=== PATIENT | male | born 1955 | race Caucasian/White ===

== ENCOUNTER 2023-05-16 22:09 | Emergency (ER) | payer BC, SELFPAY ==
[2023-05-16 22:14] VITALS: BP 106/69; PULSE 62; RESP 20; TEMP 36.3; O2SAT 95; BMI 28.7
--- NOTE | 2023-05-16 22:30 | CT_ITS ---
The [address] [address] Patient Name: JUAN MALAVE MRN: [id number] date: 1955 Sex: M Assigned Patient Location: ER Current Patient Location: ER Accession/Order Number: [id number] Exam Date: 05/16/2023 22:40 Report Date: 05/16/2023 23:02 At the request of: ESCOBAR MARKER Procedure: CT head/brain wo con CT head/brain wo con, 05/16/2023 10:40 PM EDT INDICATION: CHI COMPARISON: None. TECHNIQUE: Axial CT images of the brain from skull base to vertex, including portions of the face and sinuses, were obtained without contrast. Multiplanar reformatted images were generated and reviewed as needed. Dose reduction techniques were achieved by using automated exposure control and/or adjustment of mA and/or kV according to patient size and/or use of iterative reconstruction technique. FINDINGS: CEREBRUM: No edema, hemorrhage, mass, acute infarction, or inappropriate atrophy. There is a slitlike focus of CSF density adjacent to the anterior horn of the right lateral ventricle. A 3 mm rounded focus of CSF density is seen adjacent to the anterior horn of the left lateral ventricle. CEREBELLUM: No edema, hemorrhage, mass, acute infarction, or inappropriate atrophy. BRAINSTEM: No acute infarct, hemorrhage or gross structural abnormality. CSF SPACES: Ventricles, cisterns, and sulci are appropriate for age. No hydrocephalus, subarachnoid hemorrhage, or mass. SKULL: No mass or other significant visible lesion. SINUSES: Limited views demonstrate no significant mucosal thickening or fluid. ORBITS: Limited views are unremarkable. OTHER: None. IMPRESSION: Small foci of CSF density adjacent to the frontal horn of each lateral ventricle consistent with remote lacunar infarcts. No acute intracranial abnormality is otherwise identified. Electronically authenticated by: Quan FOSTER Date: 05/16/2023 23:02
--- NOTE | 2023-05-16 22:30 | CT_ITS ---
[address] [address] Patient Name: JUAN MALAVE MRN: [id number] date: 1955 Sex: M Assigned Patient Location: ER Current Patient Location: Accession/Order Number: [id number] Exam Date: 05/16/2023 22:40 Report Date: 05/16/2023 23:05 At the request of: ESCOBAR MARKER Procedure: CT cervical spine wo con EXAMINATION: CT cervical spine wo con HISTORY: fall COMPARISON: None. TECHNIQUE: CT Cervical spine without IV contrast. Coronal and sagittal reformations were performed. Dose reduction techniques were achieved by using automated exposure control and/or adjustment of mA and/or kV according to patient size and/or use of iterative reconstruction technique. FINDINGS: CV JUNCTION: Normal foramen magnum with no Chiari malformation. PARASPINAL: Normal with no visible mass. BONES: No fracture, pars defect, or osseous lesion. OTHER: None. DISC LEVELS: C1-C2: Within normal limits for age. C2-C3: No significant disc/facet abnormality, spinal stenosis, or foraminal stenosis. C3-C4: No significant disc/facet abnormality, spinal stenosis, or foraminal stenosis. C4-C5: Early degenerative disc disease is present without focal protrusion or central canal impingement. There is mild right foraminal stenosis. The left foramen is satisfactorily maintained.. C5-C6: Early degenerative disc disease is present without focal protrusion or neural impingement. C6-C7: Early degenerative disc disease is present without focal protrusion or neural impingement. C7-T1: No significant disc/facet abnormality, spinal stenosis, or foraminal stenosis. IMPRESSION: Mild multilevel cervical spondylosis. No evidence for acute fracture or traumatic malalignment. Electronically authenticated by: Quan FOSTER Date: 05/16/2023 23:05
[2023-05-16] MEDS: ONDANSETRON PF 4 MG/2 ML VIAL (22:46)
--- NOTE | 2023-05-16 23:17 | XR_ITS ---
The [address] [address] Patient Name: JUAN MALAVE MRN: [id number] date: 1955 Sex: M Assigned Patient Location: ER Current Patient Location: Accession/Order Number: [id number] Exam Date: 05/16/2023 23:30 Report Date: 05/16/2023 23:44 At the request of: ESCOBAR MARKER Procedure: XR elbow RT min 3V EXAM: XR elbow RT min 3V HISTORY: fall COMPARISON: None. TECHNIQUE: 3 views of the right elbow FINDINGS: No acute fracture is seen. Joint alignment is normal. Joint spaces are preserved.. No significant joint effusion is seen. Soft tissue swelling seen about the posterior elbow. IMPRESSION: No acute fracture or malalignment. Soft tissue swelling is seen about the posterior elbow. Electronically authenticated by: CARO ZARCO Date: 05/16/2023 23:44
--- NOTE | 2023-05-16 23:18 | XR_ITS ---
The [address] [address] Patient Name: JUAN MALAVE MRN: [id number] date: 1955 Sex: M Assigned Patient Location: ER Current Patient Location: ER Accession/Order Number: [id number] Exam Date: 05/16/2023 23:30 Report Date: 05/16/2023 23:42 At the request of: ESCOBAR MARKER Procedure: XR knee RT 2V EXAM: XR knee RT 2V HISTORY: fall COMPARISON: None. TECHNIQUE: 2 views of the right knee were obtained. FINDINGS: No acute fracture or dislocation is seen. The joint spaces are preserved. There is no significant right knee joint effusion. There is prepatellar soft tissue edema. IMPRESSION: 1. Right knee prepatellar soft tissue edema with no acute fracture or dislocation is seen. If there is concern for internal derangement, a nonemergent outpatient MRI is recommended. Electronically authenticated by: Mohsen HENRY Date: 05/16/2023 23:42
--- NOTE | 2023-05-16 23:49 | ED_ITS ---
HPI - Fall General Chief Complaint: Head Injury Stated Complaint: HEAD INJURY Time Seen by Provider: 05/16/23 22:30 Source: patient and family Source comment: EMS Mode of arrival: ambulance History of Present Illness HPI Narrative: This 67-year-old male is brought emergency department by EMS from home. The patient is accompanied by his . They have both been drinking since around 5 PM. The patient was walking down the stairs into his basement where there is a nail sticking out of a board and he struck the right side of his frontal aspect of his scalp on the nail sustaining approximately 8 cm superficial laceration to the right anterior temporal aspect of the scalp area. He fell and landed on his right elbow and right knee. He has tenderness and bruising to the right elbow. He has full range of motion. He denies that is particularly tender. He also has an abrasion over the elbow area. He has a superficial abrasion over the right knee. He denies any loss of consciousness. He denies any neck pain. He denies any chest pain or shortness of breath. EMS was called due to the fact that the patient is had both been drinking since 5 PM. He has no neck pain, back pain, abdominal pain. He does not know the date of his last tetanus shot. He declines a need for any pain medication. MD complaint: Reports fall Onset (ago): hour(s) (1) Fall from: Reports standing Fall witnessed: Reports yes, by family Place fall occurred: Reports home Loss of consciousness: none Prolonged down time: Reports no Symptoms prior to fall: Reports none Context: Reports alcohol use Location of injury: Reports head and other (Right elbow, right knee) Severity: mild Associated symptoms (after fall): Reports denies Related Data Home Medications Medication Instructions Recorded Confirmed aspirin 81 mg chewable tablet 81 mg PO DAILY 05/16/23 05/16/23 atorvastatin 40 mg tablet mg 05/16/23 losartan 50 mg tablet 50 mg PO DAILY 05/16/23 05/16/23 pantoprazole 40 mg tablet,delayed 40 mg PO PRN gi 05/16/23 release Allergies Allergy/AdvReac Type Severity Reaction Status Date / Time No Known Drug Allergies Allergy Verified 05/16/23 22:21 Review of Systems ROS Status of ROS 10 or more systems reviewed and unremarkable except as noted in history and below PFSH PFSH Social History Smoking status: Never smoker Exam Constitutional Vital Signs - 24 hr 05/16/23 22:14 Temperature 97.4 F L Pulse Rate [Monitor] 62 Respiratory Rate 20 Blood Pressure [Right Arm] 106/69 Pulse Oximetry 95 Oxygen Delivery Method Room Air Documenting provider has reviewed patient's vital signs: yes Common normals: no apparent distress, average body habitus, oriented x3, no limitations, healthy appearing, alert and well nourished Exam limitations: altered mental status (Mildly intoxicated with normal neuro exam, GCS 15) General appearance: cooperative and comfortable Orientation/consciousness: Yes awake, Yes oriented to person, Yes oriented to place and Yes oriented to time [facility] Common normals: normocephalic, head/scalp atraumatic (Superficial laceration approximately 8 cm rt temporal-rt frontal), TMs normal bilaterally, external nos e normal, oropharynx normal, dentition normal and gingiva normal Head and scalp: scalp tenderness Face and sinus: normal facial exam and face symmetric Nose: external nose normal, nares normal, nasal mucous membranes and turbinates normal and no nasal discharge Mouth: oral and palatal mucosa normal Eye Common normals: PERRL, EOMs intact bilaterally and conjunctivae normal Neck & C-Spine Common normals: full ROM, no lymphadenopathy and supple General: normal visual inspection, trachea midline and tenderness (No midline bony vertebral tenderness or step-off) Chest Common normals: inspection of chest normal and palpation of chest normal Respiratory Common normals: normal respiratory effort, no retractions, no use of accessory muscles and clear to auscultation bilaterally Effort & inspection: able to speak in complete sentences and symmetric chest movement Auscultation: clear to auscultation bilaterally Cardio Common normals: no JVD, regular rate, regular rhythm, S1 normal heart sound, S2 normal heart sound, no gallops, no clicks, no murmurs, no rub and peripheral pulses 2+ throughout GI Common normals: Normal to inspection, nondistended, normoactive bowel sounds present, soft to palpation and non-tender Back & Pelvis Common normals: no CVA tenderness, thoracic and lumbar spine normal to inspection, no thoracic nor lumbar tenderness and thoraco-lumbar ROM normal Extremity Common normals: normal capillary refill General: normal exam except as noted Right upper extremity: elbow joint (Tenderness and bruising to the right lateral elbow, full range of motion) Right elbow: inspection (Tenderness and bruising to lateral elbow with superficial abrasion), ROM (Normal range of motion) and neurovascular exam (Normal neurovascular exam) Right lower extremity: knee joint (Superficial abrasion over the right knee, full range of motion) Right knee: inspection (Superficial abrasion, no bony abnormality) Neuro Lincoln Coma Scale: document GCS findings Lincoln coma scale eye opening: Spontaneous Lincoln coma scale verbal response: Orientated Lincoln coma scale motor response: Obey commands Lincoln coma scale total score: 15 Common normals: oriented x3, CN's II-XII intact bilaterally, moves all extremities, no focal motor deficits and no sensory deficits noted Speech: speech normal Psych Common normals: mental status grossly normal (Mildly intoxicated with no focal deficits) Course Vital Signs Vital signs: Vital Signs Temperature 97.4 F L 05/16/23 22:14 Pulse Rate 62 05/16/23 22:14 Respiratory Rate 20 05/16/23 22:14 Blood Pressure 106/69 05/16/23 22:14 Pulse Oximetry 95 05/16/23 22:14 Oxygen Delivery Method Room Air 05/16/23 22:14 Temperature 97.4 F L 05/16/23 22:14 Pulse Rate 62 05/16/23 22:14 Respiratory Rate 20 05/16/23 22:14 Blood Pressure 106/69 05/16/23 22:14 Pulse Oximetry 95 05/16/23 22:14 Oxygen Delivery Method Room Air 05/16/23 22:14 MDM - Fall MDM Narrative Medical decision making narrative: C7-year-old male who takes a daily baby aspirin is brought to the emergency department by EMS from home after he was drinking with his this evening and fell down the stairs into his basement and struck his head on a nail sticking out of a piece of wood sustaining approximately 8 cm superficial abrasion/laceration to the right forehead area. His GCS is 15. He did not know the date of his last tetanus shot. Tetanus was updated. He declined the need for any medications. He also has ecchymosis and abrasion to the right elbow and some ecchymosis to the right knee. CT scan of the brain was negative for acute findings. CT scan of the C-spine is negative for acute findings. X-ray of the right elbow was negative for acute findings an x-ray of the right knee was also negative. The patient has remained hemodynamically and neurologically stable in the emergency department and will be discharged home. The patient's son is here to drive the patient and his home. Discharge Plan Discharge Chief Complaint: Head Injury Clinical Impression: Contusion of elbow, Contusion of knee, Fall from standing, Closed head injury, Abrasion head Patient Disposition: Home, Self-Care Condition: Good Prescriptions / Home Meds: No Action losartan 50 mg tablet 50 mg PO DAILY atorvastatin 40 mg tablet pantoprazole 40 mg tablet,delayed release (DR/EC) 40 mg PO PRN (Reason: gi) aspirin 81 mg tablet,chewable 81 mg PO DAILY Instructions: Head Injury (ED), Contusion in Adults (ED), Scalp Contusion in Adults (ED) Stand Alone Forms: Portal Instructions Referrals: Jese Rodriguez DO [Primary Care Provider] - 1 week
[2023-05-16] MEDS: ADACEL DIPH,PERTUSS(ACELL),TET VAC/PF 0.5 ML ADULT SYRINGE IM (23:53)
[2023-05-17] MEDS: BACITRACIN 0.9 GM PACKET 1 PACKET TOPICAL (00:57)
== END 2023-05-17 01:00 | disposition home or self-care (01) ==
PROVIDERS: Emergency Provider Emergency Medicine; PCP Internal Medicine
DX: S09.8XXA Other specified injuries of head, initial encounter (principal); S50.01XA Contusion of right elbow, initial encounter; S00.81XA Abrasion of other part of head, initial encounter; S80.01XA Contusion of right knee, initial encounter; W22.8XXA Striking against or struck by other objects, initial encounter; Z79.82 Long term (current) use of aspirin; Z79.899 Other long term (current) drug therapy; Z23 Encounter for immunization
CPT/HCPCS: 70450; 72125; 73080; 73560; 90471; 90715; 99285

== ENCOUNTER 2023-05-24 11:20 | Emergency (ER) | payer BC, SELFPAY ==
[2023-05-24 11:32] VITALS: BP 121/98; PULSE 78; RESP 16; TEMP 36.6; O2SAT 98; BMI 28.7
[2023-05-24 11:35] VITALS: BP 121/98
--- NOTE | 2023-05-24 11:48 | XR_ITS ---
The [address] [address] Patient Name: JUAN MALAVE MRN: [id number] date: 1955 Sex: M Assigned Patient Location: ER Current Patient Location: ER Accession/Order Number: [id number] Exam Date: 05/24/2023 12:00 Report Date: 05/24/2023 12:26 At the request of: IRA MORENO Procedure: XR ribs RT min 3V w CXR1V EXAMINATION: XR ribs RT min 3V w CXR1V 05/24/2023 9:23 AM PDT HISTORY: atraumatic pain COMPARISONS: None. FINDINGS: Lines and tubes: None. Heart and mediastinum: Tortuosity of the thoracic aorta. Rounded opacification over the lower mediastinum which could represent small/medium sized hiatal hernia. Lungs and pleura: The lungs are clear. There is no evidence of pneumonia or pulmonary edema. There is no pleural effusion or pneumothorax. Bones: No acute osseous abnormality. RIGHT RIBS: No displaced rib fracture. IMPRESSION: 1. No acute cardiopulmonary disease. 2. No displaced right-sided rib fracture or etiology for right lower chest wall pain demonstrated. Electronically authenticated by: MADIE ORTIZ Date: 05/24/2023 12:26
--- NOTE | 2023-05-24 11:50 | ED.GENADUL1 ---
HPI - General Adult General Chief complaint: Fall Stated complaint: FLANK PAIN Time Seen by Provider: 05/24/23 11:34 Source: patient Mode of arrival: walk-in Limitations: no limitations History of Present Illness HPI narrative: 67-year-old male presents to the emergency department Related Data Home Medications Medication Instructions Recorded Confirmed aspirin 81 mg chewable tablet 81 mg PO DAILY 05/16/23 05/16/23 atorvastatin 40 mg tablet mg 05/16/23 losartan 50 mg tablet 50 mg PO DAILY 05/16/23 05/16/23 pantoprazole 40 mg tablet,delayed 40 mg PO PRN gi 05/16/23 release Previous Rx's Medication Instructions Recorded acetaminophen 300 mg-codeine 30 mg 1 tab PO Q6H PRN pain #20 tabs 05/24/23 tablet cyclobenzaprine 10 mg tablet 10 mg PO TID PRN muscle spasm #20 05/24/23 tabs Allergies Allergy/AdvReac Type Severity Reaction Status Date / Time No Known Drug Allergies Allergy Verified 05/24/23 11:32 PFSH PFSH Social History Smoking status: Never smoker Exam Constitutional Vital Signs - 24 hr 05/24/23 11:32 Temperature 97.8 F Pulse Rate [Monitor] 78 Respiratory Rate 16 Blood Pressure [Left Arm] 121/98 H Pulse Oximetry 98 Oxygen Delivery Method Room Air Course Vital Signs Vital signs: Vital Signs Temperature 97.8 F 05/24/23 11:32 Pulse Rate 78 05/24/23 11:32 Respiratory Rate 16 05/24/23 11:32 Blood Pressure 121/98 H 05/24/23 11:32 Pulse Oximetry 98 05/24/23 11:32 Oxygen Delivery Method Room Air 05/24/23 11:32 Temperature 97.8 F 05/24/23 11:32 Pulse Rate 78 05/24/23 11:32 Respiratory Rate 16 05/24/23 11:32 Blood Pressure 121/98 H 05/24/23 11:32 Pulse Oximetry 98 05/24/23 11:32 Oxygen Delivery Method Room Air 05/24/23 11:32 Medical Decision Making [facility] Narrative Medical decision making narrative: his workup including CT of the chest is negative. He has no abdominal pain at all and I suspect that the gallstone noted on the CAT scan is an incidental finding. Reexamination of his abdomen shows no tenderness in the right upper quadrant. There is no evidence of pneumothorax or pneumonia or rib fracture or PE. He'll be treated symptomatically. Treatment diagnosis and follow-up were discussed with the patient. Differential Diagnosis Differential Diagnosis: pneumothorax, pulmonary embolism, rib fracture, pneumonia, chest wall pain Lab Data Lab results reviewed: Yes I reviewed the patient's lab results Labs: Lab Results 05/24/23 05/24/23 Range/Units 12:56 13:27 WBC 8.4 (4.0-11.0) 10^3/uL RBC 4.09 L (4.70-6.10) 10^6/uL Hgb 13.3 L (14.0-18.0) g/dL Hct 39.4 L (42.0-54.0) % MCV 96.3 H (80.0-94.0) fL MCH 32.5 (25.9-34.0) pg MCHC 33.8 (29.9-35.2) g/dL RDW 12.9 (11.0-15.0) % Plt Count 191 (150-450) 10^3/uL MPV 10.1 (9.5-13.5) fL Neut % (Auto) 78.1 H (43.0-75.0) % Lymph % (Auto) 13.0 L (20.5-60.0) % [place] % (Auto) 7.0 (1.7-12.0) % Eos % (Auto) 1.2 (0.9-7.0) % Baso % (Auto) 0.5 (0.2-2.0) % Neut # (Auto) 6.6 H (1.4-6.5) 10^3/uL Lymph # (Auto) 1.1 L (1.2-3.8) 10^3/uL [place] # (Auto) 0.6 (0.3-0.8) 10^3/uL Eos # (Auto) 0.1 (0.0-0.7) 10^3/uL Baso # (Auto) 0.0 (0.0-0.1) 10^3/uL Abs Immat Gran (auto) 0.02 (0.00-0.03) 10^3/uL Imm/Tot Granulo (auto) 0.2 (0.0-0.5) % Sodium 136 (136-145) mmol/L Potassium 4.2 (3.5-5.1) mmol/L Chloride 105 (98-107) mmol/L Carbon Dioxide 24.5 (21.0-32.0) mmol/L Anion Gap 10.7 BUN 28.0 H (7.0-18.0) mg/dL Creatinine 1.26 (0.70-1.30) mg/dL Est GFR ( Amer) >60 (>=60) Est GFR (Non-Af Amer) 57 L (>=60) BUN/Creatinine Ratio 22.2 Glucose 103 (74-106) mg/dL Calcium 8.7 (8.5-10.1) mg/dL Urine Color Yellow (YELLOW) Urine Clarity Clear (CLEAR) Urine pH 5.5 (5.0-9.0) Ur Specific [place] >=1.030 A (1.005-1.025) Urine Protein Negative (NEG/TRACE) mg/dL Urine Glucose (UA) Negative (NEGATIVE) mg/dL Urine Ketones Trace A (NEGATIVE) mg/dL Urine Occult Blood Negative (NEGATIVE) Urine Nitrite Negative (NEGATIVE) Urine Bilirubin Negative (NEGATIVE) Urine Urobilinogen 2.0 A (0.2-1.0) EU/dL Ur Leukocyte Esterase Negative (NEGATIVE) Discharge Plan Discharge Chief Complaint: Fall Clinical Impression: Acute chest wall pain Patient Disposition: Home, Self-Care Time of Disposition Decision: 14:58 Condition: Good Mode of Transportation: Private Vehicle Prescriptions / Home Meds: New acetaminophen-codeine 300-30 mg tablet 1 tab PO Q6H PRN (Reason: pain) Qty: 20 0RF cyclobenzaprine 10 mg tablet 10 mg PO TID PRN (Reason: muscle spasm) Qty: 20 0RF No Action losartan 50 mg tablet 50 mg PO DAILY atorvastatin 40 mg tablet pantoprazole 40 mg tablet,delayed release (DR/EC) 40 mg PO PRN (Reason: gi) aspirin 81 mg tablet,chewable 81 mg PO DAILY Instructions: Chest Wall Pain (ED) Stand Alone Forms: Portal Instructions Referrals: Jese Rodriguez DO [Primary Care Provider] - 1 week
[2023-05-24 13:07] LABS: Bilirubin Urine NEGATIVE (NEGATIVE); Blood Urine NEGATIVE (NEGATIVE); Clarity Urine CLEAR (CLEAR); Color Urine YELLOW (YELLOW); Glucose Urine UA NEGATIVE (NEGATIVE); Ketones Urine TRACE mg/dL (NEGATIVE); Leukocyte Esterase Urine NEGATIVE (NEGATIVE); Nitrite Urine NEGATIVE (NEGATIVE); Protein Urine NEGATIVE (NEG/TRACE); Specific Gravity Urine >=1.030 (1.005-1.025); pH Urine 5.5 (5.0-9.0)
[2023-05-24 13:14] LABS: Urine Microscopic Indicated NO
--- NOTE | 2023-05-24 13:19 | CT_ITS ---
[address] [address] Patient Name: JUAN MALAVE MRN: [id number] date: 1955 Sex: M Assigned Patient Location: ER Current Patient Location: Accession/Order Number: [id number] Exam Date: 05/24/2023 13:55 Report Date: 05/24/2023 14:26 At the request of: IRA MORENO Procedure: CT angio chest EXAMINATION: CT angio chest HISTORY: pain COMPARISON: No relevant comparison available. TECHNIQUE: Multi-planar CT images were created with IV contrast. Axial, Coronal, and Sagittal images. Dose reduction techniques were achieved by using automated exposure control and/or adjustment of mA and/or kV according to patient size and/or use of iterative reconstruction technique. FINDINGS: LUNGS: Mild bibasilar patchy and linear opacities, atelectasis is favored. A few scattered punctate pulmonary nodules are observed, nonspecific PLEURA: No mass, effusion, or pneumothorax. VASCULATURE: Normal postcontrast opacification of the central pulmonary arterial tree with no filling defect DIAMANTE: No mass or adenopathy. MEDIASTINUM: No mass or adenopathy. CARDIAC: No enlargement, pericardial thickening, or significant calcification. AORTA: No aneurysm or dissection. CHEST WALL: No mass or axillary adenopathy. BONES: No bone lesion or fracture. LIMITED ABDOMEN: 1.1 cm gallstone partially visualized without CT evidence of acute cholecystitis OTHER: Negative. IMPRESSION: No central pulmonary thromboembolic disease Electronically authenticated by: LISA GAMING Date: 05/24/2023 14:26
[2023-05-24 13:36] LABS: Basophils Percent Auto 0.5 % (0.2-2.0); Eosinophils Absolute Auto 0.1 10^3/uL (0.0-0.7); Eosinophils Percent Auto 1.2 % (0.9-7.0); Hematocrit 39.4 % (42.0-54.0); Hemoglobin 13.3 g/dL (14.0-18.0); Immature Granulocytes Abs Auto 0.02 10^3/uL (0.00-0.03); Immature Granulocytes Pct Auto 0.2 % (0.0-0.5); Lymphocytes Absolute Auto 1.1 10^3/uL (1.2-3.8); Mean Corpuscular HGB Conc 33.8 g/dL (29.9-35.2); Mean Corpuscular Hemoglobin 32.5 pg (25.9-34.0); Mean Corpuscular Volume 96.3 fL (80.0-94.0); Mean Platelet Volume 10.1 fL (9.5-13.5); Monocytes Absolute Auto 0.6 10^3/uL (0.3-0.8); Neutrophils Absolute Auto 6.6 10^3/uL (1.4-6.5); Neutrophils Percent Auto 78.1 % (43.0-75.0); Platelet Count 191 10^3/uL (150-450); Red Blood Count 4.09 10^6/uL (4.70-6.10); Red Cell Distribution Width 12.9 % (11.0-15.0); White Blood Count 8.4 10^3/uL (4.0-11.0)
[2023-05-24 13:44] LABS: Anion Gap 10.7; BUN Creatinine Ratio 22.2; Calcium 8.7 mg/dL (8.5-10.1); Carbon Dioxide 24.5 mmol/L (21.0-32.0); Chloride 105 mmol/L (98-107); Estimated GFR (African America >60 (>=60); Estimated GFR (Non-African Ame 57 (>=60); Glucose 103 mg/dL (74-106); Potassium 4.2 mmol/L (3.5-5.1); Sodium 136 mmol/L (136-145)
[2023-05-24] MEDS: MORPHINE SULFATE 4 MG/ML VIAL IV (14:11)
== END 2023-05-24 15:13 | disposition home or self-care (01) ==
PROVIDERS: Emergency Provider Emergency Medicine; PCP Internal Medicine
DX: R07.89 Other chest pain (principal); Z79.82 Long term (current) use of aspirin; Z79.899 Other long term (current) drug therapy
CPT/HCPCS: 36415; 71101; 71275; 80048; 81003; 85025; 96374; 99285; Q9967

== ENCOUNTER 2023-10-16 10:18 | Outpatient (OUT) | payer BC, SELFPAY ==
[2023-10-16 10:37] LABS: Basophils Percent Auto 0.4 % (0.2-2.0); Eosinophils Absolute Auto 0.1 10^3/uL (0.0-0.7); Eosinophils Percent Auto 1.3 % (0.9-7.0); Hematocrit 39.4 % (42.0-54.0); Hemoglobin 13.3 g/dL (14.0-18.0); Immature Granulocytes Abs Auto 0.02 10^3/uL (0.00-0.03); Immature Granulocytes Pct Auto 0.2 % (0.0-0.5); Lymphocytes Absolute Auto 1.3 10^3/uL (1.2-3.8); Lymphocytes Percent Auto 15.4 % (20.5-60.0); Mean Corpuscular HGB Conc 33.8 g/dL (29.9-35.2); Mean Corpuscular Hemoglobin 32.7 pg (25.9-34.0); Mean Corpuscular Volume 96.8 fL (80.0-94.0); Mean Platelet Volume 10.1 fL (9.5-13.5); Monocytes Absolute Auto 0.5 10^3/uL (0.3-0.8); Monocytes Percent Auto 5.4 % (1.7-12.0); Neutrophils Absolute Auto 6.5 10^3/uL (1.4-6.5); Neutrophils Percent Auto 77.3 % (43.0-75.0); Platelet Count 181 10^3/uL (150-450); Red Blood Count 4.07 10^6/uL (4.70-6.10); Red Cell Distribution Width 13.1 % (11.0-15.0); White Blood Count 8.4 10^3/uL (4.0-11.0)
[2023-10-16 11:24] LABS: Alanine Aminotransferase 28 U/L (16-63); Albumin Globulin Ratio 1.1; Albumin Level 3.4 g/dL (3.4-5.0); Alkaline Phosphatase 81 U/L (46-116); Anion Gap 15.4; Aspartate Amino Transferase 29 U/L (15-37); BUN Creatinine Ratio 18.9; Bilirubin Total 0.8 mg/dL (0.2-1.0); Calcium 8.6 mg/dL (8.5-10.1); Carbon Dioxide 24.5 mmol/L (21.0-32.0); Chloride 106 mmol/L (98-107); Chol HDL Ratio 2.2; Cholesterol 121 mg/dL (<=200); Estimated GFR (African America >60 (>=60); Estimated GFR (Non-African Ame >60 (>=60); Globulin 3.1 g/dL; Glucose 95 mg/dL (74-106); HDL Cholesterol 54 mg/dL (40-60); LDL Cholesterol Calculated 52.6 mg/dL; Potassium 3.9 mmol/L (3.5-5.1); Sodium 142 mmol/L (136-145); Total Protein 6.5 g/dL (6.4-8.2); Triglycerides 72 mg/dL (<=150); VLDL CHOLESTEROL 14.4 mg/dL
[2023-10-16 11:37] LABS: Prostate Specific Antigen Scrn 2.37 ng/mL (<=4.00)
== END 2023-10-16 10:19 | disposition home or self-care (01) ==
LOC: LAB 10:19
PROVIDERS: PCP Internal Medicine; Visit Provider Internal Medicine
DX: Z00.00 Encounter for general adult medical examination without abnormal findings (principal)
CPT/HCPCS: 36415; 80053; 80061; 85025; G0103

== ENCOUNTER 2024-01-16 10:10 | Outpatient (OUT) | payer BC, SELFPAY ==
--- OUTSIDE RECORDS SUMMARY | 2024-01-16 10:14 | XMS_ITS | CCD ---
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 Name Role Phone CARMEN, DR FARMER Consulting Unavailable CARMEN, DR FARMER Primary Care Unavailable CARMEN, DR FARMER Admitting Unavailable CARMEN, DR FARMER Attending Unavailable BALL, DR FARMER Primary Care Unavailable BALL, DR FARMER Admitting Unavailable BALL, DR FARMER Attending Unavailable BALL, DR FARMER Consulting Unavailable BALL, DR FARMER Primary Care Unavailable TJ ., DR ROMAN Admitting Unavailable HOY ., DR ROMAN Attending Unavailable HOY ., DR ROMAN Consulting Unavailable Carmen, Jese Unavailable Medications Current Medications Medication Drug Class(es) Dates Sig (Normalized) Sig (Original) aspirin 81 mg oral tablet (3 sources) Platelet Aggregation Inhibitor, Nonsteroidal Anti-inflammatory Drug take 1 tablet by mouth once daily Aspirin 81 81 MG 1 tablet Orally Once a day Active take 1 tablet by carey th every twenty-four hours Aspirin 81 81 MG 1 tablet Orally Once a day Active atorvastatin 40 mg oral tablet (3 sources) HMG-CoA Reductase Inhibitor Atorvastatin Calcium 40 mg TAKE 1 TABLET DAILY IN THE EVENING Active losartan potassium 50 mg oral tablet (3 sources) Angiotensin 2 Receptor Tania Losartan Potassium 50 mg TAKE 1 TABLET DAILY Active pantoprazole 40 mg delayed release oral tablet (4 sources) Proton Pump Inhibitor Start: 2 take 1 tablet by mouth every twenty-four hours Pantoprazole Sodium 40 MG 1 tablet Orally Once a day for 30 day(s) Nov, Active Problems Active Problems Problem Classification Problem Date Documented Date Episodic/Chronic Deficiency and other anemia (4 sources) Anemia, unspecified; Translations: [ANEMIA UNSPECIFIED] Onset: 01-17-2023 Episodic Deficiency and other anemia (2 sources) Iron deficiency anemia; Translations: [Iron deficiency anemia, unspecified] Episodic Deficiency and other anemia (3 sources) Anemia; Translations: [Anemia, unspecified] Episodic Disorders of lipid metabolism (6 sources) Pure hypercholesterolemia; Translations: [Familial hypercholesterolemia] Chronic E Codes: Fall (1 source) Unspecified fall, subsequent encounter Episodic Esophageal disorders (4 sources) Gastroesophageal reflux disease; Translations: [Gastro-esophageal reflux disease without esophagitis] Chronic Essential hypertension (6 sources) Essential hypertension; Translations: [Essential (primary) hypertension] Chronic Gastritis and duodenitis (7 sources) Chronic superficial gastritis; Translations: [Chronic superficial gastritis with bleeding] Chronic Hyperplasia of prostate (3 sources) Lower urinary tract symptoms due to benign prostatic hypertrophy; Translations: [Benign prostatic hyperplasia with lower urinary tract symptoms] Chronic Intracranial injury (1 source) Concussion without loss of consciousness, subsequent encounter Episodic Other and ill-defined cerebrovascular disease (3 sources) Cerebral atherosclerosis; Translations: [Cerebral atherosclerosis] Chronic Other and ill-defined cerebrovascular disease (1 source) Cerebral atherosclerosis Chronic Other nutritional; endocrine; and metabolic disorders (1 source) Overweight Episodic Other screening for suspected conditions (not mental disorders or infectious disease) (2 sources) Encounter for screening for malignant neoplasm of prostate; Translations: [ENC SCREEN MALIG NEOPLASM PROSTATE] Onset: 10-22-2022 Episodic Superficial injury; contusion (2 sources) Contusion of right elbow, subsequent encounter; Translations: [Contusion of right knee, subsequent encounter] Episodic Past or Other Problems Problem Classification Problem Date Documented Da te Episodic/Chronic Immunizations and screening for infectious disease (4 sources) Encounter for immunization; Translations: [ENCOUNTER FOR IMMUNIZATION] Onset: 02-08-2022 Episodic Results Test Name Value Interpretation Reference Range Facil ity CBC AUTO DIFFon 01-17-2023 BASO # 0.0 103/ul Normal 0.0-0.1 [facility] Comment on above: Performed By: #### C BC #### [facility] [address] [address] [address] Mike Curran Basophils/100 WBC (Bld) 0.4 % Normal 0.2-2.0 [facility] Comment on above: Performed By: #### C BC #### [facility] [address] [address] [address] Mike Curran EO # 0.1 103/ul Normal 0.0-0.7 [facility] Comment on above: Performed By: #### C BC #### [facility] [address] [place] [address] Dr. Mike Curran Eosinophils/100 WBC (Bld) 1.7 % Normal 0.9-7.0 [facility] Comment on above: Performed By: #### C BC #### [facility] [address] [place] [address] Dr. Mike uCrran Erythrocyte distribution width (RBC) [Ratio] 12.7 % Normal 11.0-15.0 [facility] Comment on above: Performed By: #### C BC #### [facility] [address] [place] [address] Dr. Mike Curran Hematocrit (Bld) [Volume fraction] 42.1 % Normal 42.0-54.0 [facility] Comment on above: Performed By: #### C BC #### [facility] [address] [place] [address] Dr. Mike Curran Hemoglobin (Bld) [Mass/Vol] 14.4 g/dL Normal 14.0-18.0 [facility] Comment on above: Performed By: #### C BC #### [facility] [address] [place] [address] Dr. Mike Curran IG # 0.01 10e3/ul Normal 0.00-0.03 [facility] Comment on above: Performed By: #### C BC #### [facility] [address] [place] [address] Dr. Mike Curran IG % 0.1 % Normal 0.0-0.5 [facility] Comment on above: Performed By: #### C BC #### [facility] [address] [place] [address] Dr. Mike Curran LYMPH # 1.3 103/ul Normal 1.2-3.8 [facility] Comment on above: Performed By: #### C BC #### [facility] [address] [place] [address] Dr. Mike Curran Lymphocytes/100 WBC (Bld) 18.6 % Critically low 20.5-60.0 [facility] Comment on above: Performed By: #### C BC #### [facility] [address] [place] [address] Dr. Mike Curran MANUAL DIFF REQ NO Normal [facility] Comment on above: Performed By: #### C BC #### [facility] [address] [place] [address] Dr. Mike Curran MCH (RBC) [Entitic mass] 32.4 pg Normal 25.9-34.0 [facility] Comment on above: Performed By: #### C BC #### [facility] [address] [place] [address] Dr. Mike Curran MCHC (RBC) [Mass/Vol] 34.2 g/dL Normal 29.9-35.2 [facility] Comment on above: Performed By: #### C BC #### [facility] [address] [place] [address] Dr. Mike Curran MCV (RBC) [Entitic vol] 94.8 fL Critically high 80.0-94.0 [facility] Comment on above: Performed By: #### C BC #### [facility] [address] [place] [address] Dr. Mike Curran MONO # 0.4 103/ul Normal 0.3-0.8 [facility] Comment on above: Performed By: #### C BC #### [facility] [address] [place] [address] Dr. Mike Curran Monocytes/100 WBC (Bld) 6.2 % Normal 1.7-12.0 [facility] Comment on above: Performed By: #### C BC #### [facility] [address] [place] [address] Dr. Mike Curran NEUT # 5.1 103/ul Normal 1.4-6.5 [facility] Comment on above: Performed By: #### C BC #### [facility] [address] [place] [address] Dr. Mike Curran Neutrophils/100 WBC (Bld) 73.0 % Normal 43.0-75.0 [facility] Comment on above: Performed By: #### C BC #### [facility] [address] [place] [address] Dr. Mike Curran Platelet mean volume (Bld) [Entitic vol] 10.1 fL Normal 9.5-13.5 [facility] Comment on above: Performed By: #### C BC #### [facility] [address] [place] [address] Dr. Mike Curran PLT 186 103/ul Normal 150-450 [facility] Comment on above: Performed By: #### C BC #### [facility] [address] [place] [address] Dr. Mike Curran RBC 4.44 106/ul Critically low 4.70-6.10 [facility] Comment on above: Performed By: #### C BC #### [facility] [address] [place] [address] Dr. Mike Curran WBC 7.0 103/ul Normal 4.0-11.0 [facility] Comment on above: Performed By: #### C BC #### [facility] [address] [place] [address] Dr. Mike Curran FERRITINon 01-17-2023 Ferritin [Mass/Vol] 113.0 ng/mL Normal 26.0-388.0 [facility] Comment on above: Performed By: #### B 12FOL, FETIBC, FERR #### [facility] [address] [place] [address] Dr. Mike Curran IRON AND TIBCon 01-17-2023 % SATURATION 32.7 % Normal [facility] Comment on above: Performed By: #### B 12FOL, FETIBC, FERR #### [facility] [address] [place] [address] Dr. Mike Curran Iron [Mass/Vol] 93.0 ug/dL Normal 65.0-175.0 [facility] Comment on above: Performed By: #### B 12FOL, FETIBC, FERR #### [facility] [address] [place] [address] Dr. Mkie Curran TIBC DIRECT 284.0 ug/dL Normal 250.0-450.0 [facility] Comment on above: Performed By: #### B 12FOL, FETIBC, FERR #### [facility] [address] [place] [address] Dr. Mike Curran VIT B12 AND FOLATEon 023 Cobalamin (Vitamin B12) [Mass/Vol] 461.0 pg/mL Normal 193.0-986.0 [facility] Comment on above: Performed By: #### B 12FOL, FETIBC, FERR #### [facility] [address] [place] [address] Dr. Mike Curran FOLATE 14.90 ng/mL Normal 8.60-58.90 [facility] Comment on above: Performed By: #### B 12FOL, FETIBC, FERR #### [facility] [address] [place] [address] Dr. Mike Curran CBC AUTO DIFFon 10-17-2022 BASO # 0.0 103/ul Normal 0.0-0.1 [facility] Comment on above: Performed By: #### C BC #### [facility] [address] [place] [address] Dr. Mike Curran Basophils/100 WBC (Bld) 0.5 % Normal 0.2-2.0 [facility] Comment on above: Performed By: #### C BC #### [facility] [address] [place] [address] Dr. Mike Curran EO # 0.1 103/ul Normal 0.0-0.7 [facility] Comment on above: Performed By: #### C BC #### [facility] [address] [place] [address] Dr. Mike Curran Eosinophils/100 WBC (Bld) 1.6 % Normal 0.9-7.0 [facility] Comment on above: Performed By: #### C BC #### [facility] [address] [place] [address] Dr. Mike Curran Erythrocyte distribution width (RBC) [Ratio] 13.1 % Normal 11.0-15.0 [facility] Comment on above: Performed By: #### C BC #### [facility] [address] [place] [address] Dr. Mike Curran Hematocrit (Bld) [Volume fraction] 39.0 % Critically low 42.0-54.0 [facility] Comment on above: Performed By: #### C BC #### [facility] [address] [place] [address] Dr. Mike Curran Hemoglobin (Bld) [Mass/Vol] 13.1 g/dL Critically low 14.0-18.0 [facility] Comment on above: Performed By: #### C BC #### [facility] [address] [place] [address] Dr. Mike Curran IG # 0.04 10e3/ul Critically high 0.00-0.03 [facility] Comment on above: Performed By: #### C BC #### [facility] [address] [place] [address] Dr. Mike Curran IG % 0.5 % Normal 0.0-0.5 [facility] Comment on above: Performed By: #### C BC #### [facility] [address] [place] [address] Dr. Mike Curran LYMPH # 1.4 103/ul Normal 1.2-3.8 [facility] Comment on above: Performed By: #### C BC #### [facility] [address] [place] [address] Dr. Mike Curran Lymphocytes/100 WBC (Bld) 15.3 % Critically low 20.5-60.0 [facility] Comment on above: Performed By: #### C BC #### [facility] [address] [place] [address] Dr. Mike Curran MANUAL DIFF REQ NO Normal [facility] Comment on above: Performed By: #### C BC #### [facility] [address] [place] [address] Dr. Mike Curran MCH (RBC) [Entitic mass] 31.7 pg Normal 25.9-34.0 [facility] Comment on above: Performed By: #### C BC #### [facility] [address] [place] [address] Dr. Mike Curran MCHC (RBC) [Mass/Vol] 33.6 g/dL Normal 29.9-35.2 [facility] Comment on above: Performed By: #### C BC #### [facility] [address] [place] [address] Dr. Mike Curran MCV (RBC) [Entitic vol] 94.4 fL Critically high 80.0-94.0 [facility] Comment on above: Performed By: #### C BC #### [facility] [address] [place] [address] Dr. Mike Curran MONO # 0.6 103/ul Normal 0.3-0.8 [facility] Comment on above: Performed By: #### C BC #### [facility] [address] [place] [address] Dr. Mike Curran Monocytes/100 WBC (Bld) 6.5 % Normal 1.7-12.0 [facility] Comment on above: Performed By: #### C BC #### [facility] [address] [place] [address] Dr. Mike Curran NEUT # 6.7 103/ul Critically high 1.4-6.5 [facility] Comment on above: Performed By: #### C BC #### [facility] [address] [place] [address] Dr. Mike Curran Neutrophils/100 WBC (Bld) 75.6 % Critically high 43.0-75.0 [facility] Comment on above: Performed By: #### C BC #### [facility] [address] [place] [address] Dr. Mike Curran Platelet mean volume (Bld) [Entitic vol] 9.6 fL Normal 9.5-13.5 [facility] Comment on above: Performed By: #### C BC #### [facility] [address] [place] [address] Dr. Mike Curran PLT 208 103/ul Normal 150-450 [facility] Comment on above: Performed By: #### C BC #### [facility] [address] [place] [address] Dr. Mike Curran RBC 4.13 106/ul Critically low 4.70-6.10 [facility] Comment on above: Performed By: #### C BC #### [facility] [address] [address] [address] Mike Curran WBC 8.9 103/ul Normal 4.0-11.0 [facility] Comment on above: Performed By: #### C BC #### [facility] [address] [address] [address] Mike Curran LIPID PROFILEon 10-17-2022 CHOL-HDL RATIO NORM SEE BELOW Normal [facility] Comment on above: Result Comment: 3.3 - 4.4 LOW RISK 4.4 - 7.1 AVERAGE RISK 7.1 - 11.0 MODERATE RISK >11.0 HIGH RISK Performed By: #### L IPID, CMP #### [facility] [address] [address] [address] Mike Curran Cholesterol [Mass/Vol] 111 mg/dL Normal <=200 [facility] Comment on above: Performed By: #### L IPID, CMP #### [facility] [address] [address] [address] Mike Curarn Cholesterol in HDL [Mass/Vol] 47 mg/dL Normal 40-60 [facility] Comment on above: Performed By: #### L IPID, CMP #### [facility] [address] [address] [address] Mike Curran Cholesterol in LDL [Mass/Vol] 43.2 mg/dL Normal [facility] Comment on above: Performed By: #### L IPID, CMP #### [facility] [address] [address] [address] Mike Curran Cholesterol.total/ Cholesterol in HDL [Mass ratio] 2.4 {ratio} Normal [facility] Comment on above: Performed By: #### L IPID, CMP #### [facility] [address] [place] [address] Dr. Mike Curran HDL NORMAL > or = 60 mg/dl - LO W CARDIOVASCULAR RISK <40 mg/dl - HIGH CARDIOVASCULAR RISK Normal [facility] Comment on above: Performed By: #### L IPID, CMP #### [facility] [address] [address] [address] Mike Curran LDL CALC NORMAL SEE BELOW Normal [facility] Comment on above: Result Comment: <100 mg/dl OPTIMAL 100 - 129 mg/dl NEAR OR ABOVE OPTIMAL 130 - 159 mg/dl BORDERLINE HIGH 160 - 189 mg/dl HIGH >190 mg/dl VERY HIGH Performed By: #### L IPID, CMP #### [facility] [address] [place] [address] Dr. Mike Curran Triglyceride [Mass/Vol] 104 mg/dL Normal <=150 [facility] Comment on above: Performed By: #### L IPID, CMP #### [facility] [address] [place] [address] Dr. Mike Curran VLDL CALC 20.8 mg/dL Normal [facility] Comment on above: Performed By: #### L IPID, CMP #### [facility] [address] [place] [address] Dr. Mike Curran PROF 14(COMP METB)on 022 Albumin [Mass/Vol] 3.5 g/dL Normal 3.4-5.0 [facility] Comment on above: Performed By: #### L IPID, CMP #### [facility] [address] [place] [address] Dr. Mike Curran Albumin/Globulin [Mass ratio] 1.1 {ratio} Normal [facility] Comment on above: Performed By: #### L IPID, CMP #### [facility] [address] [place] [address] Dr. Mike Curran ALP [Catalytic activity/Vol] 80 U/L Normal 46-116 [facility] Comment on above: Performed By: #### L IPID, CMP #### [facility] [address] [place] [address] Dr. Mike Curran ALT [Catalytic activity/Vol] 22 U/L Normal 16-63 [facility] Comment on above: Performed By: #### L IPID, CMP #### [facility] [address] [place] [address] Dr. Mike Curran Anion gap [Moles/Vol] 12.7 mmol/L Normal [facility] Comment on above: Performed By: #### L IPID, CMP #### [facility] [address] [place] [address] Dr. Mike Curran AST [Catalytic activity/Vol] 10 U/L Critically low 15-37 [facility] Comment on above: Performed By: #### L IPID, CMP #### [facility] [address] [place] [address] Dr. Mike Curran Bilirubin [Mass/Vol] 0.7 mg/dL Normal 0.2-1.0 [facility] Comment on above: Performed By: #### L IPID, CMP #### [facility] [address] [place] [address] Dr. Mike Curran Calcium [Mass/Vol] 8.8 mg/dL Normal 8.5-10.1 [facility] Comment on above: Performed By: #### L IPID, CMP #### [facility] [address] [place] [address] Dr. Mike Curran Chloride [Moles/Vol] 105 mmol/L Normal 98-107 [facility] Comment on above: Performed By: #### L IPID, CMP #### [facility] [address] [place] [address] Dr. Mike Curran CO2 [Moles/Vol] 25.1 mmol/L Normal 21.0-32.0 [facility] Comment on above: Performed By: #### L IPID, CMP #### [facility] [address] [place] [address] Dr. Mike Curran Creatinine [Mass/Vol] 1.11 mg/dL Normal 0.70-1.30 [facility] Comment on above: Performed By: #### L IPID, CMP #### [facility] [address] [place] [address] Dr. Mike Curran EGFR-AF YEMENI >60 Normal >=60 [facility] Comment on above: Performed By: #### L IPID, CMP #### [facility] [address] [place] [address] Dr. Mike Curran EGFR-NON AF YEMENI >60 Normal >=60 [facility] Comment on above: Performed By: #### L IPID, CMP #### [facility] [address] [place] [address] Dr. Mike Curran Globulin (S) [Mass/Vol] 3.3 g/dL Normal [facility] Comment on above: Performed By: #### L IPID, CMP #### [facility] [address] [place] [address] Dr. Mike Curran Glucose [Mass/Vol] 112 mg/dL Critically high 74-106 [facility] Comment on above: Performed By: #### L IPID, CMP #### [facility] [address] [place] [address] Dr. Mike Curran Potassium [Moles/Vol] 3.8 mmol/L Normal 3.5-5.1 [facility] Comment on above: Performed By: #### L IPID, CMP #### [facility] [address] [place] [address] Dr. Mike Curran Protein [Mass/Vol] 6.8 g/dL Normal 6.4-8.2 [facility] Comment on above: Performed By: #### L IPID, CMP #### [facility] [address] [place] [address] Dr. Mike Curran Sodium [Moles/Vol] 139 mmol/L Normal 136-145 [facility] Comment on above: Performed By: #### L IPID, CMP #### [facility] [address] [place] [address] Dr. Mike Curran Urea nitrogen [Mass/Vol] 28.0 mg/dL Critically high 7.0-18.0 [facility] Comment on above: Performed By: #### L IPID, CMP #### [facility] [address] [place] [address] Dr. Mike Curran Urea nitrogen/Creatinin e [Mass ratio] 25.2 mg/mg Normal [facility] Comment on above: Performed By: #### L IPID, CMP #### [facility] [address] [place] [address] Dr. Mike Curran [facility] SARS-CoV-2 (COVID-19) RNA MOIRA+probe Ql (Unsp spec) Negative Normal Negative [facility] Comment on above: Order Comment: Healt hcare Worker?: N Result Comment: Testing for SARS-CoV-2 by RT-PCR This test was developed and its performance characteristics determined by [employer] ([employer]) and validated at the [place] [facility]. This test has not been FDA cleared or approved. This test has been authorized by FDA under an Emergency Use Authorization (EUA). This test has been validated in accordance with the FDA's Guidance Document (Policy for Diagnostics Testing in Laboratories Certified to Perform High Complexity Testing under CLIA prior to Emergency Use Authorization for Coronavirus Disease-2019 during the Public Health Emergency) issued on February 25, 2020. This test is only authorized for the duration of time the declaration that circumstances exist justifying the authorization of the emergency use of in vitro diagnostic tests for detection of SARS-CoV-2 virus and/or diagnosis of COVID-19 infection under section 564(b)(1) of the Act, 21 U.S.C. 360bbb-3(b)(1), unless the authorization is terminated or revoked sooner. PERFORMED BY: [place] [address] PATHOLOGIST [employer] CRISTINO OLIVER M.D. Performed By: #### C OVID 19 [facility] #### [address] Vital Signs Date Time Vital Sign Value Performing Clinician Facility 10-11-2023 14:30-0500 Body height 177.8 cm [facility] Other [facility] Other 10-11-2023 14:30-0500 Body mass index (BMI) [Ratio] 29.61 kg/m2 [facility] Other 10-11-2023 14:30-0500 Body weight 93.62 kg [facility] Other [facility] Other 10-11-2023 14:30-0500 Diastolic blood pressure 94 mm[Hg] Jese Ball Other [facility] Other 10-11-2023 14:30-0500 Respiratory rate 12 /min Jese Ball Other [facility] Other 10-11-2023 14:30-0500 Systolic blood pressure 150 mm[Hg] Jese Ball Other [facility] Other 05-31-2023 14:30-0400 Body height 177.8 cm Jese Ball Other [facility] Other 05-31-2023 14:30-0400 Body mass index (BMI) [Ratio] 29.27 kg/m2 Jese Ball Other [facility] Other 05-31-2023 14:30-0400 Body weight 92.53 kg Jese Ball Other [facility] Other 05-31-2023 14:30-0400 Diastolic blood pressure 83 mm[Hg] Jese Ball Other [facility] Other 05-31-2023 14:30-0400 Respiratory rate 12 /min Jese Ball Other [facility] Other 05-31-2023 14:30-0400 Systolic blood pressure 119 mm[Hg] Jese Ball Other [facility] Other Encounters Encounter Date Encounter Type Care Provider Facility Start: 10-21-2023 End: 10-21-2023 ambulatory Jese Ball Other [facility] Other Start: 10-21-2023 Telephone encounter [facility] Start: 10-11-2023 End: 10-11-2023 ambulatory Jese Ball Other [facility] Other Start: 10-11-2023 Encounter for genera l adult medical examination without abnormal findings Jese Morales [facility] Start: 10-11-2023 Periodic preventive med est patient 65yrs& older Jese Morales [facility] Start: 05-31-2023 End: 05-31-2023 ambulatory Jese Morales Other [facility] Other Start: 05-31-2023 Office outpatient vi sit 15 minutes Jese Morales [facility] Start: 05-24-2023 End: 05-24-2023 ambulatory Jese Morales Other [facility] Other Start: 05-24-2023 Telephone encounter Jese Morales [facility] Start: 01-17-2023 End: 01-18-[address] JESE MORALES Facility:[facility] Start: 10-22-2022 Encounter for genera l adult medical examination without abnormal findings DR JESE MORALES [facility] Start: 10-17-2022 End: 10-18-[address] JESE MORALES Facility:[facility] Start: 10-17-2022 End: 10-18-2022 Encounter for general adult medical examination without abnormal findings DR JESE MORALES Facility:[facility] Start: 02-08-2022 End: 02-09-[address] JESE MORALES Facility:[facility] Procedures Date Procedure Procedure Detail Performing Clinician Start: 10-17-[address] KING [place] Comment on above: Performed By: #### P [facility] #### [facility] [address] [place] [address] Dr. Mike Curran Immunizations Immunization Date Immunization Notes Care Provider Fa cility 10-01-2022 Prevnar 20 Jese Morales Other [facility] Other Payers Date Payer Category Payer Self-pay 1957 Unknown [id number] 1957 Unknown [id number] 1955 Unknown [id number] [id number] 1955 Unknown [id number] [id number] Unknown [id number] [id number] Social History Date Type Detail Facility Sex Assigned At [facility] Other Evaluation note 10-11-2023 Note Date & Type Note Facility 10-11-2023 Evaluation note Encounter Date Diagnosis Assessment Notes Sep, Wellness examination (ICD-10 - Z00.00) Healthy diet and exercise. Reviewed age-appropriate preventive testing recommended. 17 Sep, 2023 Cerebral atherosclerosis (ICD-10 - I67.2) Continue secondary prevention. Reviewed stroke like symptoms and instructed to go to ER for evaluation if develops Sep, Primary hypertension (ICD-10 - I10) This patient is instructed to consume a healthy, low-fat, low-salt diet. They are also encouraged to continue exercise to achieve/maintain a normal BMI. Sep, Hypercholesteremia (ICD-10 - E78.00) Instructed on diet and exercise with continued statin therapy.Discussed the beneficial effects of lowering cholesterol in reducing the risk for cerebrovascular and cardiovascular disease. Sep, Overweight (ICD-10 - E66.3) This patient has been instructed on a low-fat, high-fiber diet. They are instructed to reduce calories, portion sizes and snacks. It is recommended that they exercise for 30 minutes, 3-5 times weekly. Sep, Screening PSA (prostate specific antigen) (ICD-10 - Z12.5) Yearly MARGARITA and PSA [facility] Other Evaluation note 05-31-2023 Note Date & Type Note Facility 05-31-2023 Evaluation note Encounter Date Diagnosis Assessment Notes May, Contusion of right elbow, subsequent encounter (ICD-10 - S50.01XD) Cleanse abrasion, monitor for s/s infection XR negative for fx May, Concussion without loss of consciousness, subsequent encounter (ICD-10 - S06.0X0D) No residual symptoms - increase activity as tolerated May, Contusion of right knee, subsequent encounter (ICD-10 - S80.01XD) Cleanse abrasion w/ soap and water, monitor for s/s infection. XR negative for fx May, Accident due to mechanical fall without injury, subsequent encounter (ICD-10 - W19.XXXD) Minor, non life threatening injuries Continue w/ activities as tolerated. Tylenol as needed for pain [facility] Other Evaluation note Note Date & Type Note Facility Evaluation note No Information [facility] Other History general Narrative - Reported Note Date & Type Note Facility History general Narrative - Reported Type Medical History GERD [facility] Other History general Narrative - Reported Note Date & Type Note Facility History general Narrative - Reported Type Medical History GERD Medical History Antral gastritis Medical History Anemia Medical History Benign prostatic hyp erplasia with lower urinary tract symptoms Medical History Cerebral atherosclerosis Medical History Hyperlipidemia type II Medical History Essential hypertension Surgical History EGD 11/16/2021 Surgical History Colonoscopy 11/06/2021 Hospitalization History see surgical history [facility] Other Summary Purpose Family History No Family History Records FoundNo Family History Records Found Advance Directives No Advanced Directives Records FoundNo Advanced Directives Records Found Additional Source Comments (unrecognized sect ion and content) No Status Records FoundNo Status Records Found INFORMATION SOURCE (unrecogn ized section and content) DATE CREATED AUTHOR 11/10/2021 [facility] DATE CREATED AUTHOR AUTHOR'S ORGANIZ ATION 01/22/2023 [facility] REASON FOR VISIT (unrecogniz ed section and content) Wants in [facility] results FOR RECORDS PERTAINING TO PATIENTS WHO ARE OR HAVE BEEN ENROLLED IN A CHEMICAL DEPENDENCY/SUBSTANCEABUSE PROGRAM, SOME INFORMATION MAY BE OMITTED. This clinical summary was aggregated from multiple sources. Caution should be exercised in using it in the provision of clinical care. This summary normalizes information from multiple sources, and as a consequence, information in this document may materially change the coding, format and clinical context of patient data. In addition, data may be omitted in some cases. CLINICAL DECISIONS SHOULD BE BASED ON THE PRIMARY CLINICAL RECORDS. [facility] provides no warranty or guarantee of the accuracy or completeness of information in this document.
[2024-01-16 10:37] LABS: Basophils Percent Auto 0.4 % (0.2-2.0); Eosinophils Absolute Auto 0.2 10^3/uL (0.0-0.7); Hematocrit 40.9 % (42.0-54.0); Hemoglobin 13.2 g/dL (14.0-18.0); Immature Granulocytes Abs Auto 0.02 10^3/uL (0.00-0.03); Immature Granulocytes Pct Auto 0.3 % (0.0-0.5); Lymphocytes Absolute Auto 1.4 10^3/uL (1.2-3.8); Lymphocytes Percent Auto 18.6 % (20.5-60.0); Mean Corpuscular HGB Conc 32.3 g/dL (29.9-35.2); Mean Corpuscular Hemoglobin 31.7 pg (25.9-34.0); Mean Corpuscular Volume 98.3 fL (80.0-94.0); Mean Platelet Volume 10.4 fL (9.5-13.5); Monocytes Absolute Auto 0.5 10^3/uL (0.3-0.8); Monocytes Percent Auto 6.8 % (1.7-12.0); Neutrophils Absolute Auto 5.5 10^3/uL (1.4-6.5); Neutrophils Percent Auto 71.9 % (43.0-75.0); Platelet Count 168 10^3/uL (150-450); Red Blood Count 4.16 10^6/uL (4.70-6.10); Red Cell Distribution Width 12.9 % (11.0-15.0); White Blood Count 7.6 10^3/uL (4.0-11.0)
[2024-01-16 13:40] LABS: Percent Iron Saturation 32.5 %
== END 2024-01-16 10:11 | disposition home or self-care (01) ==
LOC: LAB 10:11
PROVIDERS: PCP Internal Medicine; Visit Provider Internal Medicine
DX: D50.9 Iron deficiency anemia, unspecified (principal)
CPT/HCPCS: 36415; 82607; 82728; 82746; 83540; 83550; 85025

== ENCOUNTER 2024-10-19 10:09 | Outpatient (OUT) | payer BC, SELFPAY ==
--- OUTSIDE RECORDS SUMMARY | 2024-10-19 10:32 | XMS_ITS | CCD ---
Author Organization [facility] Care Team Providers Care Outside Machinist Helper Name Role Phone CARMEN, DR FARMER Consulting Unavailable CARMEN, DR FARMER Primary Care Unavailable BALL, DR FARMER Admitting Unavailable CARMEN, DR FARMER Attending Unavailable BALL, DR FARMER Primary Care Unavailable BALL, DR FARMER Admitting Unavailable CARMEN, DR FARMER Attending Unavailable CARMEN, DR FARMER Consulting Unavailable CARMEN, DR FARMER Primary Care Unavailable TJ ., DR ROMAN Admitting Unavailable TJ ., DR ROMAN Attending Unavailable HOY ., [...] 01-17-2023 BASO # 0.0 103/ul Normal 0.0-0.1 [facility] Comment on above: Performed By: #### C BC #### [facility] [address] [place] [address] Dr. Mike Curran Basophils/100 WBC (Bld) 0.4 % Normal 0.2-2.0 [facility] Comment on above: Performed By: #### C BC #### [facility] [address] [place] [address] Dr. Mike Curran EO # 0.1 103/ul Normal 0.0-0.7 [facility] Comment on above: Performed By: #### C BC #### [facility] [address] [place] [address] Dr. Mike Curran Eosinophils/100 WBC (Bld) 1.7 % Normal 0.9-7.0 [facility] Comment on above: Performed By: #### C BC #### [facility] [address] [place] [address] Dr. Mike Curran Erythrocyte distribution width (RBC) [Ratio] 12.7 % Normal 11.0-15.0 [facility] Comment on above: Performed By: #### C BC #### [facility] [address] [place] [address] Dr. Mike Curran Hematocrit (Bld) [Volume fraction] 42.1 % Normal 42.0-54.0 [facility] Comment on above: Performed By: #### C BC #### [facility] [address] [place] [address] Dr. Mike Curran Hemoglobin (Bld) [Mass/Vol] 14.4 g/dL Normal 14.0-18.0 [facility] Comment on above: Performed By: #### C BC #### [facility] [address] [place] [address] Dr. Mike Curran IG # 0.01 10e3/ul Normal 0.00-0.03 [facility] Comment on above: Performed By: #### C BC #### [facility] [address] [place] [address] Dr. Mike Curran IG % 0.1 % Normal 0.0-0.5 [facility] Comment on above: Performed By: #### C BC #### [facility] [address] [place] [address] Dr. Mike Curran LYMPH # 1.3 103/ul Normal 1.2-3.8 [facility] Comment on above: Performed By: #### C BC #### [facility] [address] [place] [address] Dr. Mike Curran Lymphocytes/100 WBC (Bld) 18.6 % Critically low 20.5-60.0 [facility] Comment on above: Performed By: #### C BC #### [facility] [address] [place] [address] Dr. Mike Curran MANUAL DIFF REQ NO Normal [facility] Comment on above: Performed By: #### C BC #### [facility] [address] [place] [address] Dr. Mike Curran MCH (RBC) [Entitic mass] 32.4 pg Normal 25.9-34.0 [facility] Comment on above: Performed By: #### C BC #### [facility] [address] [place] [address] Dr. Mike Curran MCHC (RBC) [Mass/Vol] 34.2 g/dL Normal 29.9-35.2 [facility] Comment on above: Performed By: #### C BC #### [facility] [address] [place] [address] Dr. Mike Curran MCV (RBC) [Entitic vol] 94.8 fL Critically high 80.0-94.0 [facility] Comment on above: Performed By: #### C BC #### [facility] [address] [place] [address] Dr. Mike Curran MONO # 0.4 103/ul Normal 0.3-0.8 [facility] Comment on above: Performed By: #### C BC #### [facility] [address] [place] [address] Dr. Mike Curran Monocytes/100 WBC (Bld) 6.2 % Normal 1.7-12.0 [facility] Comment on above: Performed By: #### C BC #### [facility] [address] [place] [address] Dr. Mike Curran NEUT # 5.1 103/ul Normal 1.4-6.5 [facility] Comment on above: Performed By: #### C BC #### [facility] [address] [place] [address] Dr. Mike Curran Neutrophils/100 WBC (Bld) 73.0 % Normal 43.0-75.0 [facility] Comment on above: Performed By: #### C BC #### [facility] [address] [place] [address] Dr. Mike Curran Platelet mean volume (Bld) [Entitic vol] 10.1 fL Normal 9.5-13.5 [facility] Comment on above: Performed By: #### C BC #### [facility] [address] [place] [address] Dr. Mike Curran PLT 186 103/ul Normal 150-450 [facility] Comment on above: Performed By: #### C BC #### [facility] [address] [place] [address] Dr. Mike Curran RBC 4.44 106/ul Critically low 4.70-6.10 [facility] Comment on above: Performed By: #### C BC #### [facility] [address] [place] [address] Dr. Mike Curran WBC 7.0 103/ul Normal 4.0-11.0 [facility] Comment on above: Performed By: #### C BC #### [facility] [address] [place] [address] Dr. Mike Curran FERRITINon 01-17-2023 Ferritin [Mass/Vol] 113.0 ng/mL Normal 26.0-388.0 [facility] Comment on above: Performed By: #### B 12FOL, FETIBC, FERR #### [facility] [address] [place] [address] Dr. Mike Curran IRON AND TIBCon 01-17-2023 % SATURATION 32.7 % Normal [facility] Comment on above: Performed By: #### B 12FOL, FETIBC, FERR #### [facility] [address] [place] [address] Dr. Mike Curran Iron [Mass/Vol] 93.0 ug/dL Normal 65.0-175.0 [facility] Comment on above: Performed By: #### B 12FOL, FETIBC, FERR #### [facility] [address] [place] [address] Dr. Mike Curran TIBC DIRECT 284.0 ug/dL Normal 250.0-450.0 [facility] Comment on above: Performed By: #### B 12FOL, FETIBC, FERR #### [facility] [address] [place] [address] Dr. Mike Curran VIT B12 AND FOLATEon 023 Cobalamin (Vitamin B12) [Mass/Vol] 461.0 pg/mL Normal 193.0-986.0 [facility] Comment on above: Performed By: #### B 12FOL, FETIBC, FERR #### [facility] [address] [place] [address] Dr. Mike Curran FOLATE 14.90 ng/mL Normal 8.60-58.90 [facility] Comment on above: Performed By: #### B 12FOL, FETIBC, FERR #### [facility] [address] [place] [address] Dr. Mike Curran CBC AUTO DIFFon 10-17-2022 BASO # 0.0 103/ul Normal 0.0-0.1 [facility] Comment on above: Performed By: #### C BC #### [facility] [address] [place] [address] Dr. Mike Curran Basophils/100 WBC (Bld) 0.5 % Normal 0.2-2.0 [facility] Comment on above: Performed By: #### C BC #### [facility] [address] [place] [address] Dr. Mike Curran EO # 0.1 103/ul Normal 0.0-0.7 [facility] Comment on above: Performed By: #### C BC #### [facility] [address] [place] [address] Dr. Mike Curran Eosinophils/100 WBC (Bld) 1.6 % Normal 0.9-7.0 [facility] Comment on above: Performed By: #### C BC #### [facility] [address] [place] [address] Dr. Mike Curran Erythrocyte distribution width (RBC) [Ratio] 13.1 % Normal 11.0-15.0 [facility] Comment on above: Performed By: #### C BC #### [facility] [address] [place] [address] Dr. Mike Curran Hematocrit (Bld) [Volume fraction] 39.0 % Critically low 42.0-54.0 [facility] Comment on above: Performed By: #### C BC #### [facility] [address] [place] [address] Dr. Mike Curran Hemoglobin (Bld) [Mass/Vol] 13.1 g/dL Critically low 14.0-18.0 [facility] Comment on above: Performed By: #### C BC #### [facility] [address] [place] [address] Dr. Mike Curran IG # 0.04 10e3/ul Critically high 0.00-0.03 [facility] Comment on above: Performed By: #### C BC #### [facility] [address] [place] [address] Dr. Mike Curran IG % 0.5 % Normal 0.0-0.5 [facility] Comment on above: Performed By: #### C BC #### [facility] [address] [place] [address] Dr. Mike Curran LYMPH # 1.4 103/ul Normal 1.2-3.8 [facility] Comment on above: Performed By: #### C BC #### [facility] [address] [place] [address] Dr. Mike Curran Lymphocytes/100 WBC (Bld) 15.3 % Critically low 20.5-60.0 [facility] Comment on above: Performed By: #### C BC #### [facility] [address] [place] [address] Dr. Mike Curran MANUAL DIFF REQ NO Normal [facility] Comment on above: Performed By: #### C BC #### [facility] [address] [place] [address] Dr. Mike Curran MCH (RBC) [Entitic mass] 31.7 pg Normal 25.9-34.0 [facility] Comment on above: Performed By: #### C BC #### [facility] [address] [place] [address] Dr. Mike Curran MCHC (RBC) [Mass/Vol] 33.6 g/dL Normal 29.9-35.2 [facility] Comment on above: Performed By: #### C BC #### [facility] [address] [address] [address] Mike Curran MCV (RBC) [Entitic vol] 94.4 fL Critically high 80.0-94.0 [facility] Comment on above: Performed By: #### C BC #### [facility] [address] [address] [address] Mike Curran MONO # 0.6 103/ul Normal 0.3-0.8 [facility] Comment on above: Performed By: #### C BC #### [facility] [address] [address] [address] Mike Curran Monocytes/100 WBC (Bld) 6.5 % Normal 1.7-12.0 [facility] Comment on above: Performed By: #### C BC #### [facility] [address] [address] [address] Mike Curran NEUT # 6.7 103/ul Critically high 1.4-6.5 [facility] Comment on above: Performed By: #### C BC #### [facility] [address] [address] [address] Mike Curran Neutrophils/100 WBC (Bld) 75.6 % Critically high 43.0-75.0 [facility] Comment on above: Performed By: #### C BC #### [facility] [address] [address] [address] Mike Curran Platelet mean volume (Bld) [Entitic vol] 9.6 fL Normal 9.5-13.5 [facility] Comment on above: Performed By: #### C BC #### [facility] [address] [address] [address] Mike Curran PLT 208 103/ul Normal 150-450 [facility] Comment on above: Performed By: #### C BC #### [facility] [address] [address] [address] Mike Curran RBC 4.13 106/ul Critically low 4.70-6.10 [facility] Comment on above: Performed By: #### C BC #### [facility] [address] [address] [address] Mike Curran WBC 8.9 103/ul Normal 4.0-11.0 [facility] Comment on above: Performed By: #### C BC #### [facility] [address] [address] [address] Mike Curran LIPID PROFILEon 10-17-2022 CHOL-HDL RATIO NORM SEE BELOW Normal [facility] Comment on above: Result Comment: 3.3 - 4.4 LOW RISK 4.4 - 7.1 AVERAGE RISK 7.1 - 11.0 MODERATE RISK >11.0 HIGH RISK Performed By: #### L IPID, CMP #### [facility] [address] [place] [address] Dr. Mike Curran Cholesterol [Mass/Vol] 111 mg/dL Normal <=200 [facility] Comment on above: Performed By: #### L IPID, CMP #### [facility] [address] [place] [address] Dr. Mike Curran Cholesterol in HDL [Mass/Vol] 47 mg/dL Normal 40-60 [facility] Comment on above: Performed By: #### L IPID, CMP #### [facility] [address] [place] [address] Dr. Mike Curran Cholesterol in LDL [Mass/Vol] 43.2 mg/dL Normal [facility] Comment on above: Performed By: #### L IPID, CMP #### [facility] [address] [address] [address] Mike Curran Cholesterol.total/ Cholesterol in HDL [Mass ratio] 2.4 {ratio} Normal [facility] Comment on above: Performed By: #### L IPID, CMP #### [facility] [address] [place] [address] Dr. Mike Curran HDL NORMAL > or = 60 mg/dl - LO W CARDIOVASCULAR RISK <40 mg/dl - HIGH CARDIOVASCULAR RISK Normal [facility] Comment on above: Performed By: #### L IPID, CMP #### [facility] [address] [place] [address] Dr. Mike Curran LDL CALC NORMAL SEE BELOW Normal [facility] Comment on above: Result Comment: <100 mg/dl OPTIMAL 100 - 129 mg/dl NEAR OR ABOVE OPTIMAL 130 - 159 mg/dl BORDERLINE HIGH 160 - 189 mg/dl HIGH >190 mg/dl VERY HIGH Performed By: #### L IPID, CMP #### [facility] [address] [address] [address] Mike Curran Triglyceride [Mass/Vol] 104 mg/dL Normal <=150 [facility] Comment on above: Performed By: #### L IPID, CMP #### [facility] [address] [address] [address] Mike Curran VLDL CALC 20.8 mg/dL Normal [facility] Comment on above: Performed By: #### L IPID, CMP #### [facility] [address] [place] [address] Dr. Mike Curran PROF 14(COMP METB)on 022 Albumin [Mass/Vol] 3.5 g/dL Normal 3.4-5.0 [facility] Comment on above: Performed By: #### L IPID, CMP #### [facility] [address] [address] [address] Mike Curran Albumin/Globulin [Mass ratio] 1.1 {ratio} Normal [facility] Comment on above: Performed By: #### L IPID, CMP #### [facility] [address] [address] [address] Mike Curran ALP [Catalytic activity/Vol] 80 U/L Normal 46-116 [facility] Comment on above: Performed By: #### L IPID, CMP #### [facility] [address] [address] [address] Mike Curran ALT [Catalytic activity/Vol] 22 U/L Normal 16-63 [facility] Comment on above: Performed By: #### L IPID, CMP #### [facility] [address] [address] [address] Mike Curran Anion gap [Moles/Vol] 12.7 mmol/L Normal [facility] Comment on above: Performed By: #### L IPID, CMP #### [facility] [address] [address] [address] Mike Curran AST [Catalytic activity/Vol] 10 U/L Critically low 15-37 [facility] Comment on above: Performed By: #### L IPID, CMP #### [facility] [address] [place] [address] Dr. Mike Curran Bilirubin [Mass/Vol] 0.7 mg/dL Normal 0.2-1.0 [facility] Comment on above: Performed By: #### L IPID, CMP #### [facility] [address] [address] [address] Mike Curran Calcium [Mass/Vol] 8.8 mg/dL Normal 8.5-10.1 [facility] Comment on above: Performed By: #### L IPID, CMP #### [facility] [address] [place] [address] Dr. Mike Curran Chloride [Moles/Vol] 105 mmol/L Normal 98-107 [facility] Comment on above: Performed By: #### L IPID, CMP #### [facility] [address] [place] [address] Dr. Mike Curran CO2 [Moles/Vol] 25.1 mmol/L Normal 21.0-32.0 [facility] Comment on above: Performed By: #### L IPID, CMP #### [facility] [address] [place] [address] Dr. Mike Curran Creatinine [Mass/Vol] 1.11 mg/dL Normal 0.70-1.30 [facility] Comment on above: Performed By: #### L IPID, CMP #### [facility] [address] [place] [address] Dr. Mike Curran EGFR-AF GHANAIAN >60 Normal >=60 [facility] Comment on above: Performed By: #### L IPID, CMP #### [facility] [address] [place] [address] Dr. Mike Curran EGFR-NON AF GHANAIAN >60 Normal >=60 [facility] Comment on above: Performed By: #### L IPID, CMP #### [facility] [address] [address] [address] Mike Curran Globulin (S) [Mass/Vol] 3.3 g/dL Normal [facility] Comment on above: Performed By: #### L IPID, CMP #### [facility] [address] [place] [address] Dr. Mike Curran Glucose [Mass/Vol] 112 mg/dL Critically high 74-[address] [facility] Comment on above: Performed By: #### L IPID, CMP #### [facility] [address] [place] [address] Dr. Mike Curran Potassium [Moles/Vol] 3.8 mmol/L Normal 3.5-5.1 [facility] Comment on above: Performed By: #### L IPID, CMP #### [facility] [address] [place] [address] Dr. Mike Curran Protein [Mass/Vol] 6.8 g/dL Normal 6.4-8.2 [facility] Comment on above: Performed By: #### L IPID, CMP #### [facility] [address] [place] [address] Dr. Mike Curran Sodium [Moles/Vol] 139 mmol/L Normal 136-145 [facility] Comment on above: Performed By: #### L IPID, CMP #### [facility] [address] [place] [address] Dr. Mike Curran Urea nitrogen [Mass/Vol] 28.0 mg/dL Critically high 7.0-18.0 [facility] Comment on above: Performed By: #### L IPID, CMP #### [facility] [address] [place] [address] Dr. Mike Curran Urea nitrogen/Creatinin e [Mass ratio] 25.2 mg/mg Normal [facility] Comment on above: Performed By: #### L IPID, CMP #### [facility] [address] [place] [address] Dr. Mike Curran COVID-19 [facility] 11-03-2021 SARS-CoV-2 (COVID-19) RNA MOIRA+probe Ql (Unsp spec) Negative Normal Negative [facility] Comment on above: Order Comment: Healt hcare Worker?: N Result Comment: Testing for SARS-CoV-2 by RT-PCR This test was developed and its performance characteristics determined by [employer] ([employer]) and validated at the [facility]. This test has not been FDA cleared [...] is terminated or revoked sooner. PERFORMED BY: [place] [address] PATHOLOGIST TUG BOAT ENGINEER CRISTINO OLIVER M.D. Performed By: #### C OVID 19 [facility] [place] #### [address] Vital Signs Date Time Vital Sign Value Performing Clinician Facility 10-11-2023 14:30-0500 Body height 177.8 cm [facility] Other [facility] Other 10-11-2023 14:30-0500 Body mass index (BMI) [Ratio] 29.61 kg/m2 [facility] Other [facility] Other 10-11-2023 14:30-0500 Body weight 93.62 kg [facility] Other [facility] Other 10-11-2023 14:30-0500 Diastolic blood pressure 94 mm[Hg] Jese Ball Other [facility] Other 10-11-2023 14:30-0500 Respiratory rate 12 /min Jese Ball Other [facility] Other 10-11-2023 14:30-0500 Systolic blood pressure 150 mm[Hg] Jese Ball Other [facility] Other 05-31-2023 14:30-0400 Body height 177.8 cm Jese Ball Other [facility] Other 05-31-2023 14:30-0400 Body mass index (BMI) [Ratio] 29.27 kg/m2 Jese Ball Other [facility] Other 05-31-2023 14:30-0400 Body weight 92.53 kg Jese Ball Other [facility] Other 05-31-2023 14:30-0400 Diastolic blood pressure 83 mm[Hg] Jese Ball Other [facility] Other 05-31-2023 14:30-0400 Respiratory rate 12 /min Jese Ball Other [facility] Other 05-31-2023 14:30-0400 Systolic blood pressure 119 mm[Hg] Jese Ball Other [facility] Other Encounters Encounter Date Encounter Type Care Provider Facility Start: 10-21-2023 End: 10-21-2023 ambulatory Jese Ball Other [facility] Other Start: 10-21-2023 Telephone encounter [facility] Start: 10-11-2023 End: 10-11-2023 ambulatory Jese Ball Other [facility] Other Start: 10-11-2023 Encounter for genera l adult medical examination without abnormal findings Jese Morales [facility] Start: 10-11-2023 Periodic preventive med est patient 65yrs& older Jese Morales [facility] Start: 05-31-2023 End: 05-31-2023 ambulatory Jese Morales Other [facility] Other Start: 05-31-2023 Office outpatient vi sit 15 minutes Jese Morales [facility] Start: 05-24-2023 End: 05-24-2023 ambulatory Jese Morales Other [facility] Other Start: 05-24-2023 Telephone encounter Jese Morales [facility] Start: 01-17-2023 End: 01-18-[address] JESE MORALES Facility:[facility] Start: 10-22-2022 Encounter for genera l adult medical examination without abnormal findings DR JESE MORALES [facility] Start: 10-17-2022 End: 10-18-[address] JESE MORALES Facility:[facility] Start: 10-17-2022 End: 10-18-2022 Encounter for general adult medical examination without abnormal findings DR JESE MORALES Facility:[facility] Start: 02-08-2022 End: 02-09-[address] JESE MORALES Facility:[facility] Procedures Date Procedure Procedure Detail Performing Clinician Start: 10-17-[address] K[facility] Comment on above: Performed By: #### P [facility] #### [facility] [address] [place] [address] Dr. Mike Curran Immunizations Immunization Date Immunization Notes Care Provider Fa cility 10-01-2022 Prevnar 20 Jese Morales Other [facility] Other Payers Date Payer Category Payer Self-pay 1957 Unknown [id number] 1957 Unknown [id number] 1955 Unknown [id number] 2.16.84 [id number] 1955 Unknown [id number] 2.16.84 [id number] Unknown [id number] 2.16.84 [id number] Social History Date Type Detail Facility Sex Assigned At [facility] Other Evaluation note 10-11-2023 Note Date & [...] (ICD-10 - Z12.5) Yearly MARGARITA and PSA [facility] Other Evaluation note 05-31-2023 Note Date & [...] as tolerated. Tylenol as needed for pain [facility] Other Evaluation note Note Date & Type Note Facility Evaluation note No Information [facility] [place] [employer] Other History general Narrative - Reported Note Date & Type Note Facility History general Narrative - Reported Type Medical History GERD [facility] [employer] Other History general Narrative - Reported Note [...] Colonoscopy 11/06/2021 Hospitalization History see surgical history [facility] [employer] Other Summary Purpose Family History No Family History Records FoundNo Family History Records Found Advance Directives No Advanced Directives Records FoundNo Advanced Directives Records Found Additional Source Comments (unrecognized sect ion and content) No Status Records FoundNo Status Records Found INFORMATION SOURCE (unrecogn ized section and content) DATE CREATED AUTHOR 11/10/2021 [facility] DATE CREATED AUTHOR AUTHOR'S ORGANIZ ATION 01/22/2023 [facility] REASON FOR VISIT (unrecogniz ed section and content) Wants in [facility] results FOR RECORDS PERTAINING TO PATIENTS WHO [...] BE BASED ON THE PRIMARY CLINICAL RECORDS. [employer] provides no warranty or guarantee of the accuracy or completeness of information in this document.
[2024-10-19 10:48] LABS: Basophils Percent Auto 0.3 % (0.2-2.0); Eosinophils Absolute Auto 0.1 10^3/uL (0.0-0.7); Eosinophils Percent Auto 1.8 % (0.9-7.0); Hematocrit 41.7 % (42.0-54.0); Hemoglobin 14.2 g/dL (14.0-18.0); Immature Granulocytes Abs Auto 0.02 10^3/uL (0.00-0.03); Immature Granulocytes Pct Auto 0.3 % (0.0-0.5); Lymphocytes Absolute Auto 1.5 10^3/uL (1.2-3.8); Lymphocytes Percent Auto 24.8 % (20.5-60.0); Mean Corpuscular HGB Conc 34.1 g/dL (29.9-35.2); Mean Corpuscular Hemoglobin 33.3 pg (25.9-34.0); Mean Corpuscular Volume 97.7 fL (80.0-94.0); Mean Platelet Volume 10.2 fL (9.5-13.5); Monocytes Absolute Auto 0.4 10^3/uL (0.3-0.8); Monocytes Percent Auto 6.8 % (1.7-12.0); Neutrophils Absolute Auto 4.1 10^3/uL (1.4-6.5); Platelet Count 186 10^3/uL (150-450); Red Blood Count 4.27 10^6/uL (4.70-6.10); Red Cell Distribution Width 12.6 % (11.0-15.0); White Blood Count 6.1 10^3/uL (4.0-11.0)
[2024-10-19 11:20] LABS: Alanine Aminotransferase 21 U/L (16-63); Albumin Level 3.3 g/dL (3.4-5.0); Alkaline Phosphatase 96 U/L (46-116); Anion Gap 14.6; Aspartate Amino Transferase 11 U/L (15-37); BUN Creatinine Ratio 16.8; Bilirubin Total 1.2 mg/dL (0.2-1.0); Calcium 9.4 mg/dL (8.5-10.1); Carbon Dioxide 26.8 mmol/L (21.0-32.0); Chloride 105 mmol/L (98-107); Chol HDL Ratio 2.5; Cholesterol 136 mg/dL (<=200); Estimated GFR (African America >60 (>=60 mL/min/1.73m^2); Estimated GFR (Non-African Ame 55 (>=60 mL/min/1.73m^2); Globulin 3.4 g/dL; Glucose 100 mg/dL (74-106); HDL Cholesterol 55 mg/dL (40-60); LDL Cholesterol Calculated 64.8 mg/dL; Potassium 4.4 mmol/L (3.5-5.1); Sodium 142 mmol/L (136-145); Total Protein 6.7 g/dL (6.4-8.2); Triglycerides 81 mg/dL (<=150); VLDL CHOLESTEROL 16.2 mg/dL
[2024-10-19 11:36] LABS: Prostate Specific Antigen Scrn 5.15 ng/mL (<=4.00)
== END 2024-10-19 10:10 | disposition home or self-care (01) ==
LOC: LAB 10:11
PROVIDERS: PCP Internal Medicine; Visit Provider Internal Medicine
DX: Z00.00 Encounter for general adult medical examination without abnormal findings (principal)
CPT/HCPCS: 36415; 80053; 80061; 85025; G0103

== ENCOUNTER 2024-11-23 13:31 | Outpatient (OUT) | payer BC, SELFPAY ==
--- OUTSIDE RECORDS SUMMARY | 2024-11-23 13:47 | XMS_ITS | CCD ---
Author Organization [facility] Care Team Providers Care Vrt Mechanic Name Role Phone CARMEN, DR FARMER Consulting Unavailable CARMEN, DR FARMER Primary Care Unavailable BALL, DR FARMER Admitting Unavailable CARMEN, DR FARMER Attending Unavailable BALL, DR FAREMR Primary Care Unavailable BALL, DR FARMER Admitting [...] 01-17-2023 BASO # 0.0 103/ul Normal 0.0-0.1 [facility] Comment on above: Performed By: #### C BC #### [facility] [address] [place] [address] Dr. Mike Curran Basophils/100 WBC (Bld) 0.4 % Normal 0.2-2.[address] [facility] Comment on above: Performed By: #### C BC #### [facility] [address] [place] [address] Dr. Mike Curran EO # 0.1 103/ul Normal 0.0-0.7 [facility] Comment on above: Performed By: #### C BC #### [facility] [address] [place] [address] Dr. Mike Curran Eosinophils/100 WBC (Bld) 1.7 % Normal 0.9-7.0 [facility] Comment on above: Performed By: #### C BC #### [facility] [address] [place] [address] Dr. Mike Curran Erythrocyte distribution width (RBC) [Ratio] 12.7 % Normal 11.0-15.0 [facility] Comment on above: Performed By: #### C BC #### [facility] [address] [place] [address] Dr. Mike Curran Hematocrit (Bld) [Volume fraction] 42.1 % Normal 42.0-54.0 [facility] Comment on above: Performed By: #### C BC #### [facility] [address] [place] [address] Dr. Miek Curran Hemoglobin (Bld) [Mass/Vol] 14.4 g/dL Normal 14.0-18.0 [facility] Comment on above: Performed By: #### C BC #### [facility] [address] [place] [address] Dr. Mike Curran IG # 0.01 10e3/ul Normal 0.00-0.03 [facility] Comment on above: Performed By: #### C BC #### [facility] [address] [place] [address] Dr. Mike Curran IG % 0.1 % Normal 0.0-0.5 [facility] Comment on above: Performed By: #### C BC #### [facility] [address] [place] [address] Dr. Mike Curran LYMPH # 1.3 103/ul Normal 1.2-3.[address] [facility] Comment on above: Performed By: #### C BC #### [facility] [address] [place] [address] Dr. Mike Curran Lymphocytes/100 WBC (Bld) 18.6 % Critically low 20.5-60.0 [facility] Comment on above: Performed By: #### C BC #### [facility] [address] [place] [address] Dr. Mike Curran MANUAL DIFF REQ NO Normal [facility] Comment on above: Performed By: #### C BC #### [facility] [address] [place] [address] Dr. Mike Curran MCH (RBC) [Entitic mass] 32.4 pg Normal 25.9-34.0 [facility] Comment on above: Performed By: #### C BC #### [facility] [address] [place] [address] Dr. Mike Curran MCHC (RBC) [Mass/Vol] 34.2 g/dL Normal 29.9-35.2 [facility] Comment on above: Performed By: #### C BC #### [facility] [address] [place] [address] Dr. Mike Curran MCV (RBC) [Entitic vol] 94.8 fL Critically high 80.0-94.0 [facility] Comment on above: Performed By: #### C BC #### [facility] [address] [place] [address] Dr. Mike Curran MONO # 0.4 103/ul Normal 0.3-0.8 [facility] Comment on above: Performed By: #### C BC #### [facility] [address] [place] [address] Dr. Mike Curran Monocytes/100 WBC (Bld) 6.2 % Normal 1.7-12.0 [facility] Comment on above: Performed By: #### C BC #### [facility] [address] [place] [address] Dr. Mike Curran NEUT # 5.1 103/ul Normal 1.4-6.[address] [facility] Comment on above: Performed By: #### C BC #### [facility] [address] [place] [address] Dr. Mike Curran Neutrophils/100 WBC (Bld) 73.0 % Normal 43.0-75.0 [facility] Comment on above: Performed By: #### C BC #### [facility] [address] [place] [address] Dr. Mike Curran Platelet mean volume (Bld) [Entitic vol] 10.1 fL Normal 9.5-13.5 [facility] Comment on above: Performed By: #### C BC #### [facility] [address] [place] [address] Dr. Mike Curran PLT 186 103/ul Normal 150-450 [facility] Comment on above: Performed By: #### C BC #### [facility] [address] [place] [address] Dr. Mike Curran RBC 4.44 106/ul Critically low 4.70-6.[address] [facility] Comment on above: Performed By: #### C BC #### [facility] [address] [place] [address] Dr. Mike Curran WBC 7.0 103/ul Normal 4.0-11.[address] [facility] Comment on above: Performed By: #### C BC #### [facility] [address] [place] [address] Dr. Mike Curran FERRITINon 01-17-2023 Ferritin [Mass/Vol] 113.0 ng/mL Normal 26.0-388.0 [facility] Comment on above: Performed By: #### B 12FOL, FETIBC, FERR #### [facility] [address] [place] [address] Dr. Mike Curran IRON AND TIBCon 01-17-2023 % SATURATION 32.7 % Normal [facility] Comment on above: Performed By: #### B 12FOL, FETIBC, FERR #### [facility] [address] [place] [address] Dr. Mike Curran Iron [Mass/Vol] 93.0 ug/dL Normal 65.0-175.[address] [facility] Comment on above: Performed By: #### B 12FOL, FETIBC, FERR #### [facility] [address] [place] [address] Dr. Mike Curran TIBC DIRECT 284.0 ug/dL Normal 250.0-450.0 [facility] Comment on above: Performed By: #### B 12FOL, FETIBC, FERR #### [facility] [address] [place] [address] Dr. Mike Curran VIT B12 AND FOLATEon 023 Cobalamin (Vitamin B12) [Mass/Vol] 461.0 pg/mL Normal 193.0-986.0 [facility] Comment on above: Performed By: #### B 12FOL, FETIBC, FERR #### [facility] [address] [place] [address] Dr. Mike Curran FOLATE 14.90 ng/mL Normal 8.60-58.90 [facility] Comment on above: Performed By: #### B 12FOL, FETIBC, FERR #### [facility] [address] [place] [address] Dr. Mike Curran CBC AUTO DIFFon 10-17-2022 BASO # 0.0 103/ul Normal 0.0-0.1 [facility] Comment on above: Performed By: #### C BC #### [facility] [address] [place] [address] Dr. Mike Curran Basophils/100 WBC (Bld) 0.5 % Normal 0.2-2.0 [facility] Comment on above: Performed By: #### C BC #### [facility] [address] [place] [address] Dr. Mike Curran EO # 0.1 103/ul Normal 0.0-0.7 [facility] Comment on above: Performed By: #### C BC #### [facility] [address] [place] [address] Dr. Mike Curran Eosinophils/100 WBC (Bld) 1.6 % Normal 0.9-7.0 [facility] Comment on above: Performed By: #### C BC #### [facility] [address] [place] [address] Dr. Mike Curran Erythrocyte distribution width (RBC) [Ratio] 13.1 % Normal 11.0-15.0 [facility] Comment on above: Performed By: #### C BC #### [facility] [address] [place] [address] Dr. Mike Curran Hematocrit (Bld) [Volume fraction] 39.0 % Critically low 42.0-54.0 [facility] Comment on above: Performed By: #### C BC #### [facility] [address] [place] [address] Dr. Mike Curran Hemoglobin (Bld) [Mass/Vol] 13.1 g/dL Critically low 14.0-18.0 [facility] Comment on above: Performed By: #### C BC #### [facility] [address] [place] [address] Dr. Mike Curran IG # 0.04 10e3/ul Critically high 0.00-0.03 [facility] Comment on above: Performed By: #### C BC #### [facility] [address] [place] [address] Dr. Mike Curran IG % 0.5 % Normal 0.0-0.5 [facility] Comment on above: Performed By: #### C BC #### [facility] [address] [place] [address] Dr. Mike Curran LYMPH # 1.4 103/ul Normal 1.2-3.8 [facility] Comment on above: Performed By: #### C BC #### [facility] [address] [place] [address] Dr. Mike Curran Lymphocytes/100 WBC (Bld) 15.3 % Critically low 20.5-60.0 [facility] Comment on above: Performed By: #### C BC #### [facility] [address] [place] [address] Dr. Mike Curran MANUAL DIFF REQ NO Normal [facility] Comment on above: Performed By: #### C BC #### [facility] [address] [place] [address] Dr. Mike Curran MCH (RBC) [Entitic mass] 31.7 pg Normal 25.9-34.0 [facility] Comment on above: Performed By: #### C BC #### [facility] [address] [place] [address] Dr. Mike Curran MCHC (RBC) [Mass/Vol] 33.6 g/dL Normal 29.9-35.2 [facility] Comment on above: Performed By: #### C BC #### [facility] [address] [address] [address] Mike Curran MCV (RBC) [Entitic vol] 94.4 fL Critically high 80.0-94.0 [facility] Comment on above: Performed By: #### C BC #### [facility] [address] [address] [address] Mike Curran MONO # 0.6 103/ul Normal 0.3-0.8 [facility] Comment on above: Performed By: #### C BC #### [facility] [address] [address] [address] Mike Curran Monocytes/100 WBC (Bld) 6.5 % Normal 1.7-12.0 [facility] Comment on above: Performed By: #### C BC #### [facility] [address] [address] [address] Mike Curran NEUT # 6.7 103/ul Critically high 1.4-6.5 [facility] Comment on above: Performed By: #### C BC #### [facility] [address] [address] [address] Mike Curran Neutrophils/100 WBC (Bld) 75.6 % Critically high 43.0-75.0 [facility] Comment on above: Performed By: #### C BC #### [facility] [address] [address] [address] Mike Curran Platelet mean volume (Bld) [Entitic vol] 9.6 fL Normal 9.5-13.[address] [facility] Comment on above: Performed By: #### C BC #### [facility] [address] [address] [address] Mike Curran PLT 208 103/ul Normal 150-[address] [facility] Comment on above: Performed By: #### C BC #### [facility] [address] [address] [address] Mike Curran RBC 4.13 106/ul Critically low 4.70-6.[address] [facility] Comment on above: Performed By: #### C BC #### [facility] [address] [address] [address] Mike Curran WBC 8.9 103/ul Normal 4.0-11.0 [facility] Comment on above: Performed By: #### C BC #### [facility] [address] [address] [address] Mike Curran LIPID PROFILEon 10-17-2022 CHOL-HDL RATIO NORM SEE BELOW Normal [facility] Comment on above: Result Comment: 3.3 - 4.4 LOW RISK 4.4 - 7.1 AVERAGE RISK 7.1 - 11.0 MODERATE RISK >11.0 HIGH RISK Performed By: #### L IPID, CMP #### [facility] [address] [place] [address] Dr. Mike Curran Cholesterol [Mass/Vol] 111 mg/dL Normal <=200 [facility] Comment on above: Performed By: #### L IPID, CMP #### [facility] [address] [place] [address] Dr. Mike Curran Cholesterol in HDL [Mass/Vol] 47 mg/dL Normal 40-60 [facility] Comment on above: Performed By: #### L IPID, CMP #### [facility] [address] [place] [address] Dr. Mike Curran Cholesterol in LDL [Mass/Vol] 43.2 mg/dL Normal [facility] Comment on above: Performed By: #### L IPID, CMP #### [facility] [address] [address] [address] Mike Curran Cholesterol.total/ Cholesterol in HDL [Mass ratio] 2.4 {ratio} Normal [facility] Comment on above: Performed By: #### L IPID, CMP #### [facility] [address] [place] [address] Dr. Mike Curran HDL NORMAL > or = 60 mg/dl - LO W CARDIOVASCULAR RISK <40 mg/dl - HIGH CARDIOVASCULAR RISK Normal [facility] Comment on above: Performed By: #### L IPID, CMP #### [facility] [address] [place] [address] Dr. Mike Curran LDL CALC NORMAL SEE BELOW Normal [facility] Comment on above: Result Comment: <100 mg/dl OPTIMAL 100 - 129 mg/dl NEAR OR ABOVE OPTIMAL 130 - 159 mg/dl BORDERLINE HIGH 160 - 189 mg/dl HIGH >190 mg/dl VERY HIGH Performed By: #### L IPID, CMP #### [facility] [address] [address] [address] Mike Curran Triglyceride [Mass/Vol] 104 mg/dL Normal <=150 [facility] Comment on above: Performed By: #### L IPID, CMP #### [facility] [address] [address] [address] Mike Curran VLDL CALC 20.8 mg/dL Normal [facility] Comment on above: Performed By: #### L IPID, CMP #### [facility] [address] [place] [address] Dr. Mike Curran PROF 14(COMP METB)on 022 Albumin [Mass/Vol] 3.5 g/dL Normal 3.4-5.0 [facility] Comment on above: Performed By: #### L IPID, CMP #### [facility] [address] [address] [address] Mike Curran Albumin/Globulin [Mass ratio] 1.1 {ratio} Normal [facility] Comment on above: Performed By: #### L IPID, CMP #### [facility] [address] [address] [address] Mike Curran ALP [Catalytic activity/Vol] 80 U/L Normal 46-[address] [facility] Comment on above: Performed By: #### L IPID, CMP #### [facility] [address] [address] [address] Mike Curran ALT [Catalytic activity/Vol] 22 U/L Normal 16-63 [facility] Comment on above: Performed By: #### L IPID, CMP #### [facility] [address] [address] [address] Mike Curran Anion gap [Moles/Vol] 12.7 mmol/L Normal [facility] Comment on above: Performed By: #### L IPID, CMP #### [facility] [address] [address] [address] Mike Curran AST [Catalytic activity/Vol] 10 U/L Critically low 15-37 [facility] Comment on above: Performed By: #### L IPID, CMP #### [facility] [address] [place] [address] Dr. Mike Curran Bilirubin [Mass/Vol] 0.7 mg/dL Normal 0.2-1.0 [facility] Comment on above: Performed By: #### L IPID, CMP #### [facility] [address] [address] [address] Mike Curran Calcium [Mass/Vol] 8.8 mg/dL Normal 8.5-10.1 [facility] Comment on above: Performed By: #### L IPID, CMP #### [facility] [address] [place] [address] Dr. Mike Curran Chloride [Moles/Vol] 105 mmol/L Normal 98-107 [facility] Comment on above: Performed By: #### L IPID, CMP #### [facility] [address] [place] [address] Dr. Mike Curran CO2 [Moles/Vol] 25.1 mmol/L Normal 21.0-32.0 [facility] Comment on above: Performed By: #### L IPID, CMP #### [facility] [address] [place] [address] Dr. Mike Curran Creatinine [Mass/Vol] 1.11 mg/dL Normal 0.70-1.30 [facility] Comment on above: Performed By: #### L IPID, CMP #### [facility] [address] [place] [address] Dr. Mike Curran EGFR-AF BRUNEIAN >60 Normal >=60 [facility] Comment on above: Performed By: #### L IPID, CMP #### [facility] [address] [place] [address] Dr. Mike Curran EGFR-NON AF BRUNEIAN >60 Normal >=60 [facility] Comment on above: Performed By: #### L IPID, CMP #### [facility] [address] [address] [address] Mike uCrran Globulin (S) [Mass/Vol] 3.3 g/dL Normal [facility] Comment on above: Performed By: #### L IPID, CMP #### [facility] [address] [place] [address] Dr. Mike Curran Glucose [Mass/Vol] 112 mg/dL Critically high 74-106 [facility] Comment on above: Performed By: #### L IPID, CMP #### [facility] [address] [place] [address] Dr. Mike Curran Potassium [Moles/Vol] 3.8 mmol/L Normal 3.5-5.1 [facility] Comment on above: Performed By: #### L IPID, CMP #### [facility] [address] [place] [address] Dr. Mike Curran Protein [Mass/Vol] 6.8 g/dL Normal 6.4-8.2 [facility] Comment on above: Performed By: #### L IPID, CMP #### [facility] [address] [place] [address] Dr. Mike Curran Sodium [Moles/Vol] 139 mmol/L Normal 136-145 [facility] Comment on above: Performed By: #### L IPID, CMP #### [facility] [address] [place] [address] Dr. Mike Curran Urea nitrogen [Mass/Vol] 28.0 mg/dL Critically high 7.0-18.0 [facility] Comment on above: Performed By: #### L IPID, CMP #### [facility] [address] [place] [address] Dr. Mike Curran Urea nitrogen/Creatinin e [Mass ratio] 25.2 mg/mg Normal [facility] Comment on above: Performed By: #### L IPID, CMP #### [facility] [address] [place] [address] Dr. Mike Curran COVID-19 [facility] 11-03-2021 SARS-CoV-2 (COVID-19) RNA MOIRA+probe Ql (Unsp spec) Negative Normal Negative [facility] Comment on above: Order Comment: Healt hcare Worker?: N Result Comment: Testing for SARS-CoV-2 by RT-PCR This test was developed and its performance characteristics determined by [facility] and validated at the [facility]. This test has not been FDA cleared [...] is terminated or revoked sooner. PERFORMED BY: [place] [address] PATHOLOGIST VELVET WEAVER CRISTINO OLIVER M.D. Performed By: #### C OVID 19 [facility] #### [address] Vital Signs Date Time Vital Sign Value Performing Clinician Facility 10-11-2023 14:30-0500 Body height 177.8 cm [facility] Other [facility] Other 10-11-2023 14:30-0500 Body mass index (BMI) [Ratio] 29.61 kg/m2 [facility] Other [facility] Other 10-11-2023 14:30-0500 Body weight 93.62 kg [facility] Other [facility] Other 10-11-2023 14:30-0500 Diastolic blood pressure 94 mm[Hg] Jese Ball Other [facility] Other 10-11-2023 14:30-0500 Respiratory rate 12 /min Jese Ball Other [facility] Other 10-11-2023 14:30-0500 Systolic blood pressure 150 mm[Hg] Jese Ball Other [facility] Other 05-31-2023 14:30-0400 Body height 177.8 cm Jese Ball Other [facility] Other 05-31-2023 14:30-0400 Body mass index (BMI) [Ratio] 29.27 kg/m2 Jese Ball Other [facility] Other 05-31-2023 14:30-0400 Body weight 92.53 kg Jese Ball Other [facility] Other 05-31-2023 14:30-0400 Diastolic blood pressure 83 mm[Hg] Jese Ball Other [facility] Other 05-31-2023 14:30-0400 Respiratory rate 12 /min Jese Ball Other [facility] Other 05-31-2023 14:30-0400 Systolic blood pressure 119 mm[Hg] Jese Ball Other [facility] Other Encounters Encounter Date Encounter Type Care Provider Facility Start: 10-21-2023 End: 10-21-2023 ambulatory Jese Ball Other [facility] Other Start: 10-21-2023 Telephone encounter [facility] Start: 10-11-2023 End: 10-11-2023 ambulatory Jese Ball Other [facility] Other Start: 10-11-2023 Encounter for genera l adult medical examination without abnormal findings Jese Morales [facility] Start: 10-11-2023 Periodic preventive med est patient 65yrs& older Jese Morales [facility] Start: 05-31-2023 End: 05-31-2023 ambulatory Jese Morales Other [facility] Other Start: 05-31-2023 Office outpatient vi sit [address] [facility] Start: 05-24-2023 End: 05-24-2023 ambulatory Jese Morales Other [facility] Other Start: 05-24-2023 Telephone encounter Jese Morales [facility] Start: 01-17-2023 End: 01-18-[address] JESE MORALES Facility:[facility] Start: 10-22-2022 Encounter for genera l adult medical examination without abnormal findings DR JESE MORALES [facility] Start: 10-17-2022 End: 10-18-[address] JESE MORALES Facility:[facility] Start: 10-17-2022 End: 10-18-2022 Encounter for general adult medical examination without abnormal findings DR JESE MORALES Facility:[facility] Start: 02-08-2022 End: 02-09-[address] JESE MORALES Facility:[facility] Procedures Date Procedure Procedure Detail Performing Clinician Start: 10-17-[address] KING [facility] Comment on above: Performed By: #### P [facility] #### [facility] [address] [place] [address] Dr. Mike Curran Immunizations Immunization Date Immunization Notes Care Provider Fa cility 10-01-2022 Prevnar 20 Jese Morales Other [facility] Other Payers Date Payer Category Payer Self-pay 1957 Unknown [id number] 1957 Unknown [id number] 1955 Unknown [id number] [id number] [id number] 1955 Unknown [id number] [id number] [id number] Unknown [id number] Social History Date Type Detail Facility Sex Assigned At [facility] Other Evaluation note 10-11-2023 Note Date & [...] (ICD-10 - Z12.5) Yearly MARGARITA and PSA [facility] Other Evaluation note 05-31-2023 Note Date & [...] as tolerated. Tylenol as needed for pain [facility] Other Evaluation note Note Date & Type Note Facility Evaluation note No Information [facility] Other History general Narrative - Reported Note Date & Type Note Facility History general Narrative - Reported Type Medical History GERD [facility] Other History general Narrative - Reported Note [...] Colonoscopy 11/06/2021 Hospitalization History see surgical history [facility] Other Summary Purpose Family History No Family History Records FoundNo Family History Records Found Advance Directives No Advanced Directives Records FoundNo Advanced Directives Records Found Additional Source Comments (unrecognized sect ion and content) No Status Records FoundNo Status Records Found INFORMATION SOURCE (unrecogn ized section and content) DATE CREATED AUTHOR 11/10/2021 [facility] DATE CREATED AUTHOR AUTHOR'S ORGANIZ ATION 01/22/2023 [facility] REASON FOR VISIT (unrecogniz ed section and content) [facility] FOR RECORDS PERTAINING TO PATIENTS [...] BE BASED ON THE PRIMARY CLINICAL RECORDS. [employer] provides no warranty or guarantee of the accuracy or completeness of information in this document.
[2024-11-24 04:06] LABS: PSA, Free 0.76 ng/mL; Prostate Specific Ag 3.4 ng/mL (0.0-4.0)
== END 2024-11-23 13:32 | disposition home or self-care (01) ==
LOC: LAB 13:33
PROVIDERS: PCP Internal Medicine; Visit Provider Internal Medicine
DX: R97.20 Elevated prostate specific antigen [PSA] (principal)
CPT/HCPCS: 36415; 84153; 84154

== ENCOUNTER 2025-10-28 11:06 | Outpatient (OUT) | payer MEDICARE, SELFPAY ==
--- OUTSIDE RECORDS SUMMARY | 2025-10-28 11:11 | XMS_ITS | Clinical Summary ---
Author Organization [employer] tem Address [facility] [place]-[id number] [address] [place] [address] Care Team Providers Care Figure Refinisher And Repairer Name Role Phone Jese Rodriguez Sami HUNT Primary Care Provider [phone] Allergies No known active allergies Medications No known medications Active Problems ProblemNoted DateDiagnosed DateIschemic jlocmp1307/21/2020Essential hypertension 07/21/2020Mixed jibphtvqtqgloa47/27/2020GERD (gastroesophageal reflux disease) 07/01/2018 Family History Medical HistoryRelationNameCommentsStrokeFatherHypertensionMotherStrokeSister RelationNameStatusCommentsFatherMotherSister Social History Tobacco UseTypesPacks/DayYears UsedDateSmoking Tobacco: NeverSmokeless Tobacco: Never Tobacco Cessation:Counseling Given: Yes Alcohol UseStandard Drinks/WeekCommentsYes0 (1 standard drink = 0.6 oz pure alcohol)SocialAUDIT-CAnswerDate RecordedFrequency of Alcohol ConsumptionNever 08/11/2018Average Number of DrinksNot on file08/11/2018Frequency of Binge DrinkingNot on file08/11/2018ChildcareAnswerDate RecordedChildcareUnknown 05/07/2019EmploymentAnswerDate BuljodzdSvdbqphgfsLjehhyi43/13/2019Purpose - Life AnswerDate RecordedPurpose and direction in ukvuHthiefw92/11/2021Sex and Gender InformationValueDate RecordedSex Assigned at CehuwMawq84/20/2020 10:15 AM EDT Legal LncNgnf5606/06/2018 10:48 AM EDTGender MvoevddiZier48/20/2020 10:15 AM EDT Sexual OuivxqtoconNuwbtarj93/24/2020 6:49 AM EDT Last Filed Vital Signs Vital SignReadingTime TakenCommentsBlood Iurtltqu974/68008/11/2018 3:26 PM EDT Pulse--Temperature--Respiratory Rate--Oxygen Saturation--Inhaled Oxygen Concentration--Adkirf73.6 kg (202 lb)08/11/2018 3:26 PM BDUPqaqbt207.3 cm (5' 11 )08/11/2018 3:26 PM EDTBody Mass Index28.17008/11/2018 3:26 PM EDT Plan of Treatment Health MaintenanceDue DateLast DoneCommentsDepression Ryzvakipu38/04/1969Tobacco Vnculbgzk86/04/1969Adult BMI Mtecfazcz26/04/1975DTaP,Tdap and Td Vaccines (1 - Tdap)1976Zoster (Shingles) Vaccine (1 of 2)2007Fall Risk Screening 2022Influenza Ezfajjy5807/26/2025RSV ( or age 60+ yrs) (1 - 1-dose 75+ series)2032 [employer] Not on [place] [address] Care Teams Team MemberRelationshipSpecialtyStart DateEnd Date Jese Rodriguez DO [address] [facility] [place] [address] [facility]06/06/18
--- OUTSIDE RECORDS SUMMARY | 2025-10-28 11:27 | XMS_ITS | CCD ---
Author Organization [facility] Care Team Providers Care Art Appraiser Name Role Phone CARMEN, DR FARMER Consulting Unavailable CARMEN, DR FARMER Primary Care Unavailable CARMEN, DR FARMER Admitting Unavailable CARMEN, DR FARMER Attending Unavailable CARMEN, DR FARMER Primary Care Unavailable BALL, DR FARMER Admitting Unavailable BALL, DR FARMER Attending Unavailable CARMEN, DR FARMER Consulting Unavailable CARMEN, DR FARMER Primary Care Unavailable TJ ., DR ROMAN Admitting Unavailable HOY ., DR ROMAN Attending Unavailable HOY ., DR ROMAN Consulting Jese Ontiveros Unavailable Jese Rodriguez DO Primary Care Provider Jese Rodriguez DO Attending Provider [phone] Medications Current Medications MedicationDrug Class(es)DatesSig (Normalized)Sig (Original)aspirin 81 mg delayed release oral tablet (5 sources)Platelet Aggregation Inhibitor, Nonsteroidal Anti-inflammatory Drug Start: 60-81-7947lhyy 1 tablet by mouth once dailyAspirin 81 mg tablet,delayed release (/EC) Active 81 MG PO Daily May 08, 2024 12:00am Complieswith drug therapytake 1 tablet by mouth once dailyAspirin 81 81 MG 1 tablet Orally Once a day Activetake 1 tablet by mouth every twenty-four hoursAspirin 81 81 MG 1 tablet Orally Once a day Activeatorvastatin 40 mg oral tablet (7 sources)HMG-CoA Reductase InhibitorStart: 26-82-7207Nrzaohjyhbgr 40 mg tablet Active 0 .ROUTE .COMPLEX 90 October 12, 2024 10:45am TAKE 1 TABLET DAILY IN THE EVENING Complies with drug therapyStart: 11-06-2021 End: 93-08-9523mpxh 1 tablet by mouth once dailyAtorvastatin 40 mg tablet Discontinued 40 MG PO Daily November 06, 2021 1:00am October 12, 2024 10:45amciprofloxacin 500 mg oral tablet (4 sources)Quinolone AntimicrobialStart: 10-19-2024 End: 42-51-2588kmnf 1 tablet by mouth twice dailyCiprofloxacin Hcl 500 mg tablet Active 500 MG PO Twice daily 56 October 19, 2024 5:40pm Complies with drug therapylosartan potassium 50 mg oral tablet (7 sources)Angiotensin 2 Receptor BlockerStart: 58-78-6628Skxtplke 50 mg tablet Active 0 .ROUTE .COMPLEX August 28, 2024 10:46am TAKE 1 TABLET DAILY Comp lies with drug therapyStart: 71-11-6730Aopvnxqz 50 mg tablet Active 0 .ROUTE .COMPLEX August 28, 2024 10:46am TAKE 1 TABLET DAILYStart: 11-06-2021 End: 89-62-3777bigm 1 tablet by mouth once dailyLosartan 50 mg tablet Discontinued 50 MG PO Daily November 06, 2021 1:00am August 28, 2024 10:46am pantoprazole 40 mg delayed release oral tablet (6 sources)Proton Pump InhibitorStart: 72-95-4467oucp 1 tablet by mouth once dailyPantoprazole 40 mg tablet,delayed release (DR/EC) Active 40 MG PO Daily May 08, 2024 12:00am Complies with drug therapyStart: 15-59-5315wysr 1 tablet by mouth every twenty-four hoursPantoprazole Sodium 40 MG 1 tablet Orally Once a day for 30 day(s) Nov, Active Problems Active Problems Problem ClassificationProblemDateDocumented DateEpisodic/ChronicDeficiency and other anemia (4 sources)Anemia, unspecified; Translations: [ANEMIA UNSPECIFIED]Onset: 56-61-5243QvuxkfutNcsfgmmjar and other anemia (4 sources)Iron deficiency anemia; Translations: [Iron deficiency anemia, unspecified]58-22-9417QyiywrxtLbfrvwg on above:Problem List clean-up per request of Phys. EHR CmteDeficiency and other anemia (3 sources)Anemia; Translations: [Anemia, unspecified]EpisodicDisorders of lipid metabolism (10 sources)Pure hypercholesterolemia; Translations: [Familial hypercholesterolemia]ChronicE Codes: Fall (1 source)Unspecified fall, subsequent encounterEpisodicEsophageal disorders (9 sources)Gastroesophageal reflux disease; Translations: [Gastro-esophageal reflux disease without esophagitis]79-04-9735FuuretsDvrqxpocm hypertension (10 sources)Essential hypertension; Translations: [Essential (primary) hypertension]ChronicGastritis and duodenitis (7 sources)Chronic superficial gastritis; Translations: [Chronic superficial gastritis with bleeding]ChronicHyperplasia of prostate (3 sources)Lower urinary tract symptoms due to benign prostatic hypertrophy; Translations: [Benign prostatic hyperplasia with lower urinary tract symptoms] ChronicIntracranial injury (1 source)Concussion without loss of consciousness, subsequent encounterEpisodic Other and ill-defined cerebrovascular disease (6 sources)Cerebral atherosclerosis; Translations: [Cerebral atherosclerosis] 04-91-1268KazeyvaVzlbt and ill-defined cerebrovascular disease (1 source)Cerebral atherosclerosisChronicOther nutritional; endocrine; and metabolic disorders (1 source)OverweightEpisodicOther nutritional; endocrine; and metabolic disorders (3 sources)Overweight; Translations: [Overweight]60-88-0141CzcjlztsUpihd screening for suspected conditions (not mental disorders or infectious disease) (10 sources)Encounter for screening for malignant neoplasm of prostate; Translations: [Raised prostate specificantigen]Onset: 70-17-0808XheyobfzQoqobyr on above:PSA: 1.92 - 09/2021, 2.82 - 09/2022, 2.37 - 09/2023, 5.15 - 09/2024, 3.4 (24%) - 4Problem List clean-up per request of Phys. EHR Cmte Superficial injury; contusion (2 sources)Contusion of right elbow, subsequent encounter; Translations: [Contusion of right knee, subsequent encounter]Episodic Past or Other Problems Problem ClassificationProblemDateDocumented DateEpisodic/ChronicImmunizations and screening for infectious disease (4 sources)Encounter for immunization; Translations: [ENCOUNTER FOR IMMUNIZATION]Onset: 25-51-3513Tqrpblun Results Test NameValueInterpretationReference RangeFacilityNo Panel Informationon 83-58-7650Mrxn Prostate Specific Antigen0.76 ng/mLN/[facility] CenterComment on above:Liz ECLIA methodology.Prostate Specific Antigen Total 3.4 ng/mL0.0-4.0[facility]ull [facility] HospitalComment on above:Liz ECLIA methodology.According to the [place] [employer], Serum PSAshould decrease and remain at undetectable levels afterradical prostatectomy. The AUA defines biochemicalrecurrence as an initial PSA value 0.2 ng/mL or greaterfollowed by a subsequent confirmatory PSA value 0.2 ng/mLor greater. Values obtained with different assay methods orkits cannot be used interchangeably. Results cannot beinterpreted as absolute evidence of the presence or absenceof malignant disease.Serum or plasma free prostate specific antigen (PSA)/total PSA ratioon 69-27-8891Uwhf PSA/Total PSA [Mass fraction] Serum or plasma free prostate specific antigen (PSA)/total PSA ratio.[facility] HospitalComment on above:The table below lists the probability of prostate cancer formen with non-suspicious MARGARITA results andtotal PSA between4 and 10 ng/mL, by patient age (Anamaria et al, DOMINIC 1998,279:1542). % Free PSA 50-64 yr 65-75 yr 0.00-10.00% 56% 55% 10.01-15.00% 24% 35% 15.01-20.00% 17% 23% 20.01- 25.00% 10% 20% >25.00% 5% 9%Please note: Anamaria et al did not make specific recommendations regarding the use of percent free PSA for any other population of men.Performed at: [facility] Lab[address] [id number] Director: Kyaw Becker PhD, Phone: [phone] AUTO DIFFon 40-95-1268NLKS #0.0 103/ulNormal0.0-0.1The [facility] HospitalComment on above: Performed By: #### CBC #### [facility] [address] [place] [address] Dr. Mike Napolesphils/100 WBC (Bld)0.4 %Normal0.2-2.0The [facility] Comment on above:Performed By: #### CBC #### [facility] [address] [place] [address] Dr. Mike Lynn #0.1 103/ulNormal0.0-0.7The [facility] HospitalComment on above: Performed By: #### CBC #### [facility] [address] [address] [address] Mike Chackoosinophils/100 WBC (Bld)1.7 %Normal0.9-7.0The [facility] Comment on above:Performed By: #### CBC #### [facility] [address] [address] [address] Mike Chackorythrocyte distribution width (RBC) [Ratio]12.7 %Ehsdty91.0-15.0 The [facility] HospitalComment on above:Performed By: #### CBC #### [facility] [address] [place] [address] Dr. Mike CurranHematocrit (Bld) [Volume fraction]42.1 %Mouqcs54.0-54.0The [facility] HospitalComment on above:Performed By: #### CBC #### [facility] [address] [place] [address] Dr. Mike CurranHemoglobin (Bld) [Mass/Vol]14.4 g/mHQykogm09.0-18.0The [facility] HospitalComment on above:Performed By: #### CBC #### [facility] [address] [place] [address] Dr. Mike Vazquez #0.01 10e3/ulNormal0.00-0.03The [facility] HospitalComment on above:Performed By: #### CBC #### [facility] [address] [place] [address] Dr. Mike Vazquez %0.1 %Normal0.0-0.5The [facility] HospitalComment on above: Performed By: #### CBC #### [facility] [address] [place] [address] Dr. Mike CastanonH #1.3 103/ulNormal1.2-3.8The [facility] HospitalComment on above:Performed By: #### CBC #### [facility] [address] [place] [address] Dr. Mike Metzgermphocytes/100 WBC (Bld)18.6 %Critically low20.5-60.0The [facility] HospitalComment on above:Performed By: #### CBC #### [facility] [address] [address] [address] Mike Wheeler DIFF REQNONormalThe [facility] HospitalComment on above: Performed By: #### CBC #### [facility] [address] [address] [address] Mike Adams (RBC) [Entitic mass]32.4 pxCedzma96.9-34.0The [facility] HospitalComment on above:Performed By: #### CBC #### [facility] [address] [address] [address] Mike Adams (RBC) [Mass/Vol]34.2 g/mEDqcvsc09.9-35.2The [facility] HospitalComment on above:Performed By: #### CBC #### [facility] [address] [place] [address] Dr. Mike Adams (RBC) [Entitic vol]94.8 fLCritically high80.0-94.0The [facility] HospitalComment on above:Performed By: #### CBC #### [facility] [address] [address] [address] Mike Fleming #0.4 103/ulNormal0.3-0.8The [facility]ja Medical Centerment on above:Performed By: #### CBC #### [facility] [address] [address] [address] Mike Chongocytes/100 WBC (Bld)6.2 %Normal1.7-12.0The [facility] Comment on above:Performed By: #### CBC #### [facility] [address] [address] [address] Mike Savage #5.1 103/ulNormal1.4-6.5The [facility] Medical Centerment on above:Performed By: #### CBC #### [facility] [address] [address] [address] Mike Lautrophils/100 WBC (Bld)73.0 %Izxdcj80.0-75.0The Lucy HospitalComment on above:Performed By: #### CBC #### [facility] [address] [address] [address] Mike Millerlet mean volume (Bld) [Entitic vol]10.1 fLNormal9.5-13.5The [facility] HospitalComment on above:Performed By: #### CBC #### [facility] [address] [address] [address] Mike CurranPLT186 103/jgZetcfw979-025Kng [facility] HospitalComment on above: Performed By: #### CBC #### [facility] [address] [place] [address] Dr. Mike CurranRBC4.44 106/ulCritically low4.70-6.10The [facility] HospitalComment on above:Performed By: #### CBC #### [facility] [address] [place] [address] Dr. Mike CurranWBC7.0 103/ulNormal4.0-11.0The [facility] HospitalComment on above: Performed By: #### CBC #### [facility] [address] [place] [address] Dr. Mike CurranFERCECILIATINon 52-86-8693Rohtkazo [Mass/Vol]113.0 ng/mLNormal 26.0-388.0The [facility] HospitalComment on above:Performed By: #### B12FOL, FETIBC, FERR #### [facility] [address] [place] [address] Dr. Mike Espinoza AND TIBCon 01-17-2023% CIFUULJLPP20.7 %NormalThe [facility] HospitalComment on above:Performed By: #### B12FOL, FETIBC, FERR #### [facility] [address] [place] [address] Dr. Mike Espinoza [Mass/Vol]93.0 ug/cSZqeeer06.0-175.0The [facility] on above:Performed By: #### B12FOL, FETIBC, FERR #### [facility] [address] [place], [place] [address] Dr. Mike Villatoro DQGDKZ771.0 ug/wQHzmmme772.0-450.0[facility] Comment on above:Performed By: #### B12FOL, FETIBC, FERR #### [facility] [address] [place] [address] Dr. Mike Jimenes B12 AND FOLATEon 71-14-8736Jjrkdjjac (Vitamin B12) [Mass/Vol] 461.0 pg/vFPbfiup581.0-986.0The [facility] HospitalComment on above:Performed By: #### B12FOL, FETIBC, FERR #### [facility] [address] [place] [address] Dr. Mike CurranFOLATE14.90 ng/mLNormal8.60-58.90The [facility] HospitalComment on above:Performed By: #### B12FOL, FETIBC, FERR #### [facility] [address] [place] [address] Dr. Mike Silva AUTO DIFFon 23-42-4667FNTL #0.0 103/ulNormal0.0-0.1[facility] HealthComment on above:Performed By: #### CBC #### [facility] [address] [place] [address] Dr. Mike Nelsonsophils/100 WBC (Bld)0.5 %Normal0.2-2.0[facility] Comment on above:Performed By: #### CBC #### [facility] [address] [place] [address] Dr. Mike Lynn #0.1 103/ulNormal0.0-0.7The [facility] HospitalComment on above: Performed By: #### CBC #### [facility] [address] [place] [address] Dr. Mike Chackoosinophils/100 WBC (Bld)1.6 %Normal0.9-7.0[facility] Comment on above:Performed By: #### CBC #### [facility] [address] [place] [address] Dr. Mike Chackorythrocyte distribution width (RBC) [Ratio]13.1 %Tfligg30.0-15.0 [facility] Centerment on above:Performed By: #### CBC #### [facility] [address] [place] [address] Dr. Mike CurranHematocrit (Bld) [Volume fraction]39.0 %Critically low42.0-54.0 The [facility] HospitalComment on above:Performed By: #### CBC #### [facility] [address] [place] [address] Dr. Mike CurranHemoglobin (Bld) [Mass/Vol]13.1 g/dLCritically low14.0-18.0The [facility] HospitalComment on above:Performed By: #### CBC #### [facility] [address] [place] [address] Dr. Mike CurranIG #0.04 10e3/ulCritically high0.00-0.03The [facility] Comment on above:Performed By: #### CBC #### [facility] [address] [place] [address] Dr. Mike CurranIG %0.5 %Normal0.0-0.5ThFort Hamilton HospitalComment on above: Performed By: #### CBC #### [facility] [address] [place] [address] Dr. Mike Sharpe #1.4 103/ulNormal1.2-3.8The [facility] HospitalComment on above:Performed By: #### CBC #### [facility] [address] [place] [address] Dr. Mike Castanonhocytes/100 WBC (Bld)15.3 %Critically low20.5-60.0[facility] Centerment on above:Performed By: #### CBC #### [facility] [address] [place] [address] Dr. Mike NorrisUAL DIFF REQNONormalThe [facility] HospitalComment on above: Performed By: #### CBC #### [facility] [address] [place] [address] Dr. Mike Cheung (RBC) [Entitic mass]31.7 tnRpovzc02.9-34.0The [facility] HospitalComment on above:Performed By: #### CBC #### [facility] [address] [place] [address] Dr. Mike Adams (RBC) [Mass/Vol]33.6 g/kOTqudkl15.9-35.2The [facility] HospitalComment on above:Performed By: #### CBC #### [facility] [address] [place] [address] Dr. Mike Adams (RBC) [Entitic vol]94.4 fLCritically high80.0-94.0The [facility] HospitalComment on above:Performed By: #### CBC #### [facility] [address] [place] [address] Dr. Mike Fleming #0.6 103/ulNormal0.3-0.8The [facility] HospitalComment on above:Performed By: #### CBC #### [facility] [address] [place] [address] Dr. Mike Chongocytes/100 WBC (Bld)6.5 %Normal1.7-12.0[facility] Comment on above:Performed By: #### CBC #### [facility] [address] [place] [address] Dr. Mike Savage #6.7 103/ulCritically high1.4-6.5The [facility] Comment on above:Performed By: #### CBC #### [facility] [address] [place] [address] Dr. Mike Lautrophils/100 WBC (Bld)75.6 %Critically high43.0-75.0The [facility] HospitalComment on above:Performed By: #### CBC #### [facility] [address] [place] [address] Dr. Mike Millerlet mean volume (Bld) [Entitic vol]9.6 fLNormal9.5-13.5The [facility] HospitalComment on above:Performed By: #### CBC #### [facility] [address] [place] [address] Dr. Mike CortezT208 103/mxJfejuy472-730Kjt [facility] HospitalComment on above: Performed By: #### CBC #### [facility] [address] [place] [address] Dr. Mike CurranRBC4.13 106/ulCritically low4.70-6.10The [facility] HospitalComment on above:Performed By: #### CBC #### [facility] [address] [place] [address] Dr. Mike CurranWBC8.9 103/ulNormal4.0-11.0The [facility] HospitalComment on above: Performed By: #### CBC #### [facility] [address] [place] [address] Dr. Mike ConnorID PROFILEon 64-41-6688WSCU-HDL RATIO NORMSAccess Hospital DaytonComment on above:Result Comment: 3.3 - 4.4 LOW RISK 4.4 - 7.1 AVERAGE RISK 7.1 - 11.0 MODERATE RISK >11.0 HIGH RISKPerformed By: #### LIPID, CMP #### [facility] [address] [place] [address] Dr. Mike Matiasesterol [Mass/Vol]111 mg/dLNormal<=200[facility] Comment on above:Performed By: #### LIPID, CMP #### [facility] [address] [place] [address] Dr. Mike Matiasesterol in HDL [Mass/Vol]47 mg/uFUztmxb49-21Rbr [facility] HospitalComment on above:Performed By: #### LIPID, CMP #### [facility] [address] [place] [address] Dr. Mike Matiasesterol in LDL [Mass/Vol]43.2 mg/dLRegency Hospital Cleveland EastComhenry ford jack[facility] hospital on above:Performed By: #### LIPID, CMP #### [facility] [address] [place] [address] Dr. Yilan ChangCholesterol.total/Cholesterol in HDL [Mass ratio]2.4 {ratio} NormalThe [facility] HospitalComment on above:Performed By: #### LIPID, CMP #### [facility] [address] [place] [address] Dr. Mike Rojas NORMAL> or = 60 mg/dl - LOW CARDIOVASCULAR RISK <40 mg/dl - HIGH CARDIOVASCULAR RISKRegency Hospital Cleveland EastComment on above:Performed By: #### LIPID, CMP #### [facility] [address] [place] [address] Dr. Mike CurranLDL CALC NORMALSEE BELOWNoMercy HospitalComment on above:Result Comment: <100 mg/dl OPTIMAL 100 - 129 mg/dl NEAR OR ABOVE OPTIMAL 130 - 159 mg/dl BORDERLINE HIGH 160 - 189 mg/dl HIGH >190 mg/dl VERY HIGH Performed By: #### LIPID, CMP #### [facility] [address] [place] [address] Dr. Mike CurranTriglyceride [Mass/Vol]104 mg/dLNormal<=150The [facility] Comment on above:Performed By: #### LIPID, CMP #### [facility] [address] [place] [address] Dr. Mike CurranVLDL CALC20.8 mg/dLNoMercy HospitalComment on above: Performed By: #### LIPID, CMP #### [facility] [address] [place] [address] Dr. Mike CurranPROF 14(COMP METB)on 47-65-7454Uedcuck [Mass/Vol]3.5 g/dLNormal 3.4-5.0[facility] HealthComment on above:Performed By: #### LIPID, CMP #### [facility] [address] [place] [address] Dr. Mike CurranAlbumin/Globulin [Mass ratio]1.1 {ratio}NormalThe [facility] HospitalComment on above:Performed By: #### LIPID, CMP #### [facility] [address] [place] [address] Dr. Mike FrankP [Catalytic activity/Vol]80 U/SCjpdls92-152IymKettering HealthComment on above:Performed By: #### LIPID, CMP #### [facility] [address] [address] [address] Mike Gutierrez [Catalytic activity/Vol]22 U/PMzcynp09-60Eeo [facility] HospitalComment on above:Performed By: #### LIPID, CMP #### [facility] [address] [address] [address] Mike Holmon gap [Moles/Vol]12.7 mmol/LNormalKettering Health Comment on above:Performed By: #### LIPID, CMP #### [facility] [address] [address] [address] Mike CurranAST [Catalytic activity/Vol]10 U/LCritically jkh44-84Cmr [facility] HospitalComment on above:Performed By: #### LIPID, CMP #### [facility] [address] [place] [address] Dr. Mike CurranBilirubin [Mass/Vol]0.7 mg/dLNormal0.2-1.0[facility] Comment on above:Performed By: #### LIPID, CMP #### [facility] [address] [place] [address] Dr. Mike CurranCalcium [Mass/Vol]8.8 mg/dLNormal8.5-10.1[facility] Comment on above:Performed By: #### LIPID, CMP #### [facility] [address] [place] [address] Dr. Mike CurranChloride [Moles/Vol]105 mmol/FMmgklk55-693DeaKettering Health Comment on above:Performed By: #### LIPID, CMP #### [facility] [address] [place] [address] Dr. Mike CurranCO2 [Moles/Vol]25.1 mmol/ZCvnkzg20.0-32.0The [facility] Comment on above:Performed By: #### LIPID, CMP #### [facility] [address] [place] [address] Dr. Mike CurranCreatinine [Mass/Vol]1.11 mg/dLNormal0.70-1.30The [facility] HospitalComment on above:Performed By: #### LIPID, CMP #### [facility] [address] [place] [address] Dr. Mike Hemphill-AF UGANDAN>60Normal>=60The [facility] HospitalComment on above:Performed By: #### LIPID, CMP #### [facility] [address] [place] [address] Dr. Mike ChackoGFR-NON AF UGANDAN>60Normal>=60[facility] HealthComment on above:Performed By: #### LIPID, CMP #### [facility] [address] [place] [address] Dr. Mike CurranGlobulin (S) [Mass/Vol]3.3 g/dLNormalThe [facility] HospitalComment on above:Performed By: #### LIPID, CMP #### [facility] [address] [place] [address] Dr. Mike CurranGlucose [Mass/Vol]112 mg/dLCritically cttx43-316RejKettering HealthComment on above:Performed By: #### LIPID, CMP #### [facility] [address] [place] [address] Dr. Mike CurranPotassium [Moles/Vol]3.8 mmol/LNormal3.5-5.1[facility] Comment on above:Performed By: #### LIPID, CMP #### [facility] [address] [place] [address] Dr. Mike CurranProtein [Mass/Vol]6.8 g/dLNormal6.4-8.2The [facility] Comment on above:Performed By: #### LIPID, CMP #### [facility] [address] [place] [address] Dr. Mike CurranSodium [Moles/Vol]139 mmol/IDnehpd024-042Kln [facility] Comment on above:Performed By: #### LIPID, CMP #### [facility] [address] [place] [address] Dr. Mike CurranUrea nitrogen [Mass/Vol]28.0 mg/dLCritically high7.0-18.0The [facility] HospitalComment on above:Performed By: #### LIPID, CMP #### [facility] [address] [place], [place] [address] Dr. Mike Montoya nitrogen/Creatinine [Mass ratio]25.2 mg/mgNormalThe [facility] HospitalComment on above:Performed By: #### LIPID, CMP #### [facility] [address] [place], [place] [address] Dr. Mike CurranCOVID-19 [facility] 50-96-7978TBYO-CoV-2 (COVID-19) RNA MOIRA+probe Ql (Unsp spec)NegativeNormalNegativeTrumbull Memorial HospitalComment on above:Order Comment: Healthcare Worker?: NResult Comment: Testing for SARS-CoV-2 by RT-PCR This test was developed and its performance characteristics determined by [employer] and validated at the [facility]. This test has not been FDA [...] is terminated or revoked sooner. PERFORMED BY: [place] [address] PATHOLOGIST ENROBER CRISTINO OLIVER M.D.Performed By: #### COVID 19 [facility] #### [address] Vital Signs Date TimeVital SignValuePerforming AzpnbszjaQzbnkand52-74-8103 09:55-0400Body jeiwfo423.8 cmBenjamin Ball DO Work Phone: [facility]09-15-2025 09:55-0400 Body mass index (BMI) [Ratio]28.5 kg/d1Qkpqhrso Ball DO Work Phone: [facility]09-15-2025 09:55-0400 Body loonsh07.32 kgBenjamin Ball DO Work Phone: [facility]09-15-2025 09:55-0400 Diastolic blood fawouzpt46 mm[Hg]Jese Ball DO Work Phone: [facility]09-15-2025 09:55-0400 Heart rate71 /minBenjamin Ball DO Work Phone: [facility]09-15-2025 09:55-0400 Respiratory rate12 /minBenjamin Ball DO Work Phone: [facility]09-15-2025 09:55-0400 Systolic blood qpncmunk653 mm[Hg]Jese Ball DO Work Phone: [facility]03-18-2025 14:30-0400 Body ejgosh604.8 cmTrumbull Memorial Hospital03-18-2025 14:30-0400Body mass index (BMI) [Ratio]29.1 kg/w9LhxxwjujsTrumbull Memorial Hospital03-18-2025 14:30-0400Body jgyytz51.13 kgTrumbull Memorial Hospital03-18-2025 14:30-0400Diastolic blood ofmdvjsv64 mm[Hg][facility] 02-09-2025 14:30-0400Heart rate92 /[facility] 02-09-2025 14:30-0400Respiratory rate12 /[facility] 02-09-2025 14:30-0400Systolic blood iwmodkej537 mm[Hg][facility]11-17-2023 14:30-0500Body ccvfon087.8 cmBenjamin Ball Other [facility] Other 11-17-2023 14:30-0500Body mass index (BMI) [Ratio] 29.61 kg/v0Txdvmksr Ball Other [facility] Other 11-17-2023 14:30-0500Body zftucp26.62 kgBenjamin Ball Other [facility] Other 11-17-2023 14:30-0500Diastolic blood mm[Hg] Jese Ball Other [facility] Other 11-17-2023 14:30-0500Respiratory rate12 /minBenjamin Ball Other [facility] Other 11-17-2023 14:30-0500Systolic blood zfvvaaui928 mm[Hg] Jese Ball Other [facility] Other 07-07-2023 14:30-0400Body .8 cmBenjamin Ball Other [facility] Other 07-07-2023 14:30-0400Body mass index (BMI) [Ratio] 29.27 kg/g4Besspxat Ball Other [facility] Other 07-07-2023 14:30-0400Body movdof46.53 kgBenjamin Ball Other [facility] Other 07-07-2023 14:30-0400Diastolic blood yaerkslp32 mm[Hg] Jese Ball Other [facility] Other 07-07-2023 14:30-0400Respiratory rate12 /minBenjamin Ball Other [facility] [facility] Other 07-07-2023 14:30-0400Systolic blood sevebgjx427 mm[Hg] Jese Rodriguez Other [employer] Other Encounters Encounter DateEncounter TypeCare ProviderFacilityStart: 08-09-2025 End: 08-75-2658wgftfnsjttCgimwqah Ball DO Work Phone: [facility] Work Phone: Start: 08-09-2025 End: 69-93-6654Pavuioj encounter procedureBesalomón Rodriguez DO-[facility] Work Phone: Start: 02-09-2025 End: 15-27-4661kvoprjvhtbQgjoipyteSelect Medical [facility] [place] Work Phone: Start: 02-09-2025 End: 03-68-4191Aawewqd encounter procedureFirchildren's hospital of the [facility] Work Phone: Start: 42-71-6518Sob-patient / Non-visitNov[facility] [employer] Work Phone: Start: 89-19-5494Mpqzeoe encounter statusCommunity Regional Medical Centertart: 10-21-2023 End: 45-87-9671pecnspivkpQjduwwrl Ball Other [facility] Other Start: 70-45-7613Vkrposuvk encounterBesalomón Rodriguez Medical ClinicStart: 10-11-2023 End: 35-64-8866wwuubjditwKvxcrcyi Ball Other [employer] Other Start: 80-67-5325Vgvgdecfl for general adult medical examination without abnormal findingsJese Rodriguez Medical ClinicStart: 25-97-8296Ucvpucid preventive med est patient 65yrs& olderBesalomón Rodriguez Medical ClinicStart: 05-31-2023 End: 58-64-8466hggmmxqgltApikuprk Ball Other [employer] Other Start: 66-33-4571Osjsrb outpatient visit 15 minutes Jese Rodriguez Medical ClinicStart: 05-24-2023 End: 23-90-1941hhosicybnwFjlnltnu Ball Other [facility] [employer] Other Start: 94-60-8754Sbohuixsd encounterBesalomón Rodriguez Medical ClinicStart: 01-17-2023 End: 21-95-7641ghodpghgxfSV JESE RODRIGUEZFacility:Y5Dhtxf: 37-73-3233Xhxqqxrbj for general adult medical examination without abnormal findingsDR JESE RODRIGUEZ [facility] Dublintart: 10-17-2022 End: 06-04-8605evakppofvbQN JESE RODRIGUEZFacility:Y4Ckeuw: 10-17-2022 End: 43-79-0837Dhycvying for general adult medical examination without abnormal findingsDR JESE RODRIGUEZFacility:W7Lfefp: 02-08-2022 End: 96-26-0479ppyhrqwqpxQP JESE CARMENFacility:H1 Procedures DateProcedureProcedure DetailPerforming ClinicianStart: 94-65-2838UFU screening DR JESE Amezcua on above:Performed By: #### PSASC #### [facility] [address] [place] [address] Dr. Mike Curran Immunizations Immunization DateImmunizationNotesCare HthsetpsDlieatdw43-55-1122Hgxlxgr 20 Jese Rodriguez Other [facility]04-13-2021COVID-19 mRNA, Comirnatmegan (Pfizer)[facility]03-22-2021COVID-19 mRNA, Comirnaty (Pfizer)[facility] Payers DatePayer CategoryPayerPolicy [id number] [id number] Health InsuranceAetna [id number] Social History DateTypeDetailFacilitySex Assigned At [facility] Other Start: 72-38-2527Jjgazbv smoking status NHISNever smoked tobacco (finding)[facility] Centertart: 77-96-8616Htq Male (finding)[facility] Centertart: 79-78-7526Auw Assigned At [facility] Evaluation note 10-11-2023 Note Date & QkcqYjpuXmrfvfnd12-99-0881 Evaluation note* Encounter Date Diagnosis Assessment Notes Treatment Notes Treatment Clinical Notes Sep, Wellness examination (ICD-10 - Z 00.00) Healthy diet and exercise. Reviewed age-appropriate preventive testing recommended. Sep,erebral atherosclerosis (ICD-10 - I67.2)Continue secondary prevention. Reviewed stroke like symptoms and instructed to go to ER for evaluation if develops Sep,rimary hypertension (ICD-10 - I10)This patient is instructed to consume a healthy, low-fat, low-salt diet. They are also encouraged to continue exercise to achieve/maintain a normal BMI. Sep,Hypercholesteremia (ICD-10 - E78.00)Instructed on diet and exercise with continued statin therapy.Discussed the beneficial effects of lowering cholesterol in reducing the risk for cerebrovascular and cardiovascular disease. Sep,Overweight (ICD-10 - E66.3)This patient has been instructed on a low-fat, high-fiber diet. They are instructed to reduce calories, portion sizes and snacks. It is recommended that they exercise for 30 minutes, 3-5 times weekly. 17 Sep, 2023Screening PSA (prostate specific antigen) (ICD-10 - Z12.5)Yearly MARGARITA and PSA [place] [employer] Other Evaluation note 05-31-2023 Note Date & DuipCotvHdbrpwhr48-21-2003 Evaluation note* Encounter Date Diagnosis Assessment Notes Treatment Notes Treatment Clinical Notes May, Contusion of right elbow, subseq uent encounter (ICD-10 - S50.01XD) Cleanse abrasion, monitor for s/s infection XR negative for fx May,oncussion without loss of consciousness, subsequent encounter (ICD- 10 - S06.0X0D)No residual symptoms - increase activity as tolerated May,ontusion of right knee, subsequent encounter (ICD-10 - S80.01XD) Cleanse abrasion w/ soap and water, monitor for s/s infection. XR negative for fx May,ccident due to mechanical fall without injury, subsequent encounter (ICD-10 - W19.XXXD)Minor, non life threatening injuries Continue w/ activities as tolerated. Tylenol as needed for pain [facility] Other Evaluation note Note Date & TypeNoteFacilityEvaluation noteNo InformationNort mSchool Other Evaluation note Note Date & TypeNoteFacilityEvaluation note* Diagnosis Onset Date Resolution Status Admit Date Elevated cholesterol acuteMarch 2024 2:22pmElevated PSAacuteMarch 2024 2:22pmHypertension acuteMarch 2024 2:22pm [facility] Work Phone: Evaluation note Note Date & TypeNoteFacilityEvaluation note* Diagnosis Onset Date Resolution Status Admit Date Cerebral atherosclerosis acuteSeptember 2024 9:42amElevated cholesterolacuteSeptember 2024 9:42amElevated PSAacuteSeptember 2024 9:42amGERD (gastroesophageal reflux disease)acuteSeptember 2024 9:42amHypertensionacuteSeptember 2024 9:42amOverweightacuteSeptember 2024 9:42am [facility] Work Phone: History general Narrative - Reported Note Date & TypeNoteFacilityHistory general Narrative - Reported* Type Description Date Medical History GERD [facility] Other History general Narrative - Reported Note Date & TypeNoteFacilityHistory general Narrative - Reported* Type Description Date Medical History GERD Medical HistoryAntral gastritisMedical HistoryAnemiaMedical HistoryBenign prostatic hyperplasia with lower urinary tract symptomsMedical HistoryCerebral atherosclerosisMedical HistoryHyperlipidemia type IIMedical HistoryEssential hypertensionSurgical PozvqvwXPC87/23/2021urgical EziaqgbZyzbdbsmowr77/13/2021 Hospitalization Historysee surgical history [facility] [email or web address] Other Reason for referral (narrative) Note Date & TypeNoteFacilityReason for referral (narrative)No reason for referral information availableUk Healthcare Work Phone: Summary Purpose Family History Relationship Condition Age at Onset Recorded Date/T tim father Cerebrovascular accident (CVA) Unknown Acute cerebrovascular accident (CVA)UnknownmotherHypertensionUnknownsisterAcute cerebrovascular accident (CVA)Unknown Advance Directives Advance Directive Response Recorded Date/ Time Advance Directives Yes October 8:36am Chief Complaint and Reason for Visit Chief Complaint Admit Date 4 month February 09, 2025 2:2 2pm Reason for Visit Admit Date Elevated cholesterol February 09, 2025 2: 22pm Elevated PSA February 09, 2025 2:2 2pm Hypertension February 09, 2025 2:2 2pm Chief Complaint Admit Date 6 month f/u August 09, 2025 9:42am Reason for Visit Admit Date Cerebral atherosclerosis August 09, 2025 9:42am Elevated cholesterol August 09 9:42am Elevated PSA August 09, 2025 9:42am GERD (gastroesophageal reflux disease) S eptember 2024 9:42am Hypertension August 09, 2025 9:42am Overweight August 09, 2025 9:42am Additional Source Comments (unrecognized sect ion and content) No Status Records FoundNo Status Records Found INFORMATION SOURCE (unrecogn ized section and content) DATE CREATED AUTHOR 11/10/2021 [facility] DATE CREATED AUTHOR AUTHOR'S SAYDA BARAJAS 01/22/2023 [facility] REASON FOR VISIT (unrecogniz ed section and content) Wants in [facility] results Care Teams (unrecognized sec tion and content) Team Status: Active Member Role Status Dates Jese Rodriguez , Primary Care Provider Active Team Status: Inactive Member Role Status Dates Jese Rodriguez , Primary Care Provider Active Start: August 09, 2025 End: August 09kleber Rodriguez , DOAttending ProviderActiveStart: August 09, 2025 End: August 09, 2025 Team Status: Active Member Role Status Dates Jese Rodriguez , Primary Care Provider Active Team Status: Active Member Role Status Dates Jese Rodriguez , Primary Care Provide r, Attending Provider Active Start: November 23, 2024 Team Status: Inactive Member Role Status Dates Jese Rodriguez , Primary Care Provide r, Attending Provider Active Start: February 09, 2025 End: February 09, 2025 Team Status: Inactive Member Role Status Dates Jese Rodriguez , Primary Care Provider Active Start: August 09, 2025 End: August 09enángel Rodriguez , DOAttending ProviderActiveStart: August 09, 2025 End: August 09, 2025 Goals (unrecognized section and content) Goals may be documented in a n alternate section FOR RECORDS PERTAINING TO PATIENTS WHO ARE [...] BE BASED ON THE PRIMARY CLINICAL RECORDS. [employer] provides no warranty or guarantee of the accuracy or completeness of information in this document.
[2025-10-28 11:45] LABS: Alanine Aminotransferase 29 U/L (16-63); Albumin Globulin Ratio 1.0; Albumin Level 3.5 g/dL (3.4-5.0); Alkaline Phosphatase 99 U/L (46-116); Anion Gap 11.3; Aspartate Amino Transferase 15 U/L (15-37); Blood Urea Nitrogen 23.0 mg/dL (7.0-18.0); Calcium 8.9 mg/dL (8.5-10.1); Carbon Dioxide 29.7 mmol/L (21.0-32.0); Chloride 107 mmol/L (98-107); Cholesterol 129 mg/dL (<=200); Estimated GFR (African America >60 (>=60 mL/min/1.73m^2); Estimated GFR (Non-African Ame >60 (>=60 mL/min/1.73m^2); Globulin 3.5 g/dL; Glucose 102 mg/dL (74-106); HDL Cholesterol 57 mg/dL (40-60); Potassium 4.0 mmol/L (3.5-5.1); Sodium 144 mmol/L (136-145); Total Protein 7.0 g/dL (6.4-8.2); Triglycerides 72 mg/dL (<=150); VLDL CHOLESTEROL 14.4 mg/dL
[2025-10-28 11:51] LABS: Hematocrit 41.6 % (42.0-54.0); Hemoglobin 14.0 g/dL (14.0-18.0); Immature Granulocytes Abs Auto 0.02 10^3/uL (0.00-0.03); Immature Granulocytes Pct Auto 0.3 % (0.0-0.5); Lymphocytes Absolute Auto 1.4 10^3/uL (1.2-3.8); Mean Corpuscular HGB Conc 33.7 g/dL (29.9-35.2); Mean Corpuscular Hemoglobin 33.1 pg (25.9-34.0); Mean Corpuscular Volume 98.3 fL (80.0-94.0); Platelet Count 196 10^3/uL (150-450); Red Blood Count 4.23 10^6/uL (4.70-6.10); White Blood Count 7.5 10^3/uL (4.0-11.0)
== END 2025-10-28 11:07 | disposition home or self-care (01) ==
PROVIDERS: PCP Internal Medicine; Visit Provider Internal Medicine
DX: I67.2 Cerebral atherosclerosis (principal); E78.00 Pure hypercholesterolemia, unspecified; I10 Essential (primary) hypertension; Z12.5 Encounter for screening for malignant neoplasm of prostate
CPT/HCPCS: 36415; 80053; 80061; 85025; G0103